=== PATIENT | male | born 1965 | race Caucasian/White ===

== ENCOUNTER 2018-06-30 13:43 | Inpatient (IN) ==
[2018-06-30] MEDS ORDERED: 0.9 % Sodium Chloride 1,000 ML IVC ONE ×2 (14:18→14:31)
[2018-06-30 15:14] LABS: Basophils # 0.1 K/mcL (0.0-0.2); Basophils % 0.4 %; Eosinophils # 0.1 K/mcL (0.0-0.6); Eosinophils % 1.1 %; Hematocrit 46.4 % (37.5-50.1); Hemoglobin 15.5 g/dL (12.9-16.9); Immature Granulocytes % 0.8 % (0-4); Lymphocytes # 1.7 K/mcL (0.6-4.6); Lymphocytes % 12.9 %; Mean Corpuscular HGB Conc 33.4 g/dL (31.6-35.5); Mean Corpuscular Hemoglobin 29.5 pg (28.0-33.3); Mean Corpuscular Volume 88.4 fL (83.0-100.0); Mean Platelet Volume 9.2 fL (9.4-12.4); Monocytes # 0.7 K/mcL (0.0-1.3); Monocytes % 5.5 %; Neutrophils # 10.5 K/mcL (1.6-8.9); Platelet Count 261 K/mcL (140-400); Red Blood Count 5.25 M/mcL (4.19-5.50); Red Cell Distribution Width 14.1 % (11.5-14.5); Segmented Neutrophils % 79.3 %
[2018-06-30 15:16] LABS: Prothrombin Time 11.4 Seconds (9.4-12.1)
[2018-06-30 15:38] LABS: Alanine Aminotransferase 282 Units/L (7-52); Albumin 3.7 g/dL (3.5-5.7); Albumin/Globulin Ratio 1.4 (1.1-2.2); Alkaline Phosphatase 74 Units/L (34-104); Aspartate Amino Transferase 754 Units/L (13-39); BUN/Creatinine Ratio 24 (6-26); Bilirubin,Direct 0.1 mg/dL (0.0-0.2); Bilirubin,Indirect 0.2 mg/dL (0.0-1.2); Bilirubin,Total 0.3 mg/dL (0.3-1.0); Blood Urea Nitrogen 12 mg/dL (6-20); Calcium 8.7 mg/dL (8.6-10.3); Carbon Dioxide 24 mEq/L (23-29); Chloride 105 mEq/L (98-107); Creatine Kinase > 20000 Units/L (30-223); Globulin 2.6 g/dL (2.4-3.5); Glucose 95 mg/dL (70-105); Osmolality,Calculated 284 (280-300); Potassium 4.3 mEq/L (3.5-5.1); Sodium 137 mEq/L (136-145); Total Protein 6.3 g/dL (6.4-8.9); eGFR For Non-African Americans > 60 (> 60)
[2018-06-30 15:51] LABS: Bilirubin,Urine Negative (Negative); Blood,Urine Large (Negative); Clarity,Urine Clear (Clear); Glucose,Urine (UA) Normal (Normal); Ketones,Urine Negative (Negative); Leukocyte Esterase,Urine Negative (Negative); Nitrite,Urine Negative (Negative); PH,Urine 7.5 pH Units (5.0-8.0); Protein,Urine 100 mg/dL (Neg-Trace); Specific Gravity,Urine 1.007 (1.010-1.025); Urobilinogen,Urine Normal (Normal)
[2018-06-30 15:53] LABS: Bacteria,Urine None Seen per hpf (None-Few); Hyaline Casts,Urine None Seen per lpf (None-Few); RBC,Urine 0-3 per hpf (0-3); Squamous Epithelial Cell,Urine Few per lpf (None-Few); WBC,Urine 0-3 per hpf (0-3)
[2018-06-30 15:56] LABS: Color,Urine Pink (Yellow)
--- NOTE | 2018-06-30 15:56 | Emergency Department Note ---
Disposition Clinical Impression: Hepatitis Rhabdomyolysis Qualifiers: Rhabdomyolysis type: non-traumatic Qualified Code(s): M62.82 - Rhabdomyolysis Disposition: Admitted As Inpatient Condition: Good Referrals: NONE,PCP [Primary Care Provider] - Forms: ED Satisfaction Letter, Work/School Release General Adult HPI - General Chief complaint: ED General Medical Stated complaint: Generalized Time Seen by Provider: 06/30/18 13:59 Source: patient, EMS Limitations: no limitations Nursing Notes Reviewed: Yes Vital Signs Reviewed: Yes - History of Present Illness HPI Narrative: Patient with a history of long-term alcohol use as well as untreated hypertension with previous history of rhabdo and kidney failure presenting to the hospital for concerns for kidney failure. Patient states for the past 2 days he has had significant muscular pains including the calves upper extremities and lower back. Patient states that he has not been doing anything significantly strain full. He did recently inherit his parents house and has been doing a lot of work around the house. He has not been staying as hydrated as he should. He states over the last day he has been drinking significant amounts of water "as much as I can stomach" to try to help. This has not significantly relieved his symptoms so he presented to the emergency department. Patient has pain to the back as well as the upper thighs and lower counts. Patient does have associated weakness to the lower legs. Patient does have a history of previous [place]. Patient will receive ABIs to further evaluate for blood flow to the lower extremities. Patient will undergo further evaluation for possible rhabdo. 2 L normal saline have been started after initial evaluation. Pain Scale: 0 - Related Data Allergies Allergy/AdvReac Type Severity Reaction Status Date / Time No Known Allergies Allergy Verified 06/30/18 15:07 All systems ED: reviewed and negative except as stated. Review of Systems: As Per HPI Constitutional: Reports: weakness (Generalized). Denies: fever, chills Cardiovascular: Denies: chest pain Respiratory: Denies: cough, dyspnea Gastrointestinal: Reports: nausea. Denies: abdominal pain, vomiting Genitourinary: Reports: frequency Musculoskeletal: Reports: back pain Integumentary: Denies: rash Neurological: Reports: weakness (generalized). Denies: headache Endocrine: Reports: fatigue Past Medical History - Past Medical History Medical history: Reports: hypertension, myocardial infarction, renal disease Psychiatric history: Reports: no psych history - Social History Smoking Status: Current every day smoker Alcohol use: Reports: occasionally Drug use: Reports: none Physical Exam General: Well appearing, nontoxic, no acute distress Head: Normocephalic Atraumatic Eyes: PERRL, EOMI ENT: Airway patent, no stridor Neck: supple, no meningismus Chest: Lungs clear to auscultation bilateral Cardiac: Regular rate and rhythm, no murmurs, rubs or gallops Abdomen: soft, nontender, nondistended; no guarding, rebound, or tenderness to percussion Musculoskeletal: Calves symmetric, tenderness to bilateral calves worse on the left Skin: No rash, normal skin tone. Neuro: Alert and Oriented to person, place, and time; cranial nerves II through XII are intact. Patient has decreased strength to the bilateral thighs. Patient has decreased ability to dorsiflex the left foot. DP pulse +2 bilaterally. - General Limitations: no limitations General appearance: alert, in no apparent distress Course - Reevaluation(s) Reevaluation #1: Patient with elevated hepatic enzymes. AST 2 ALT are consistent with significant drinking history and possible alcoholic hepatitis. The patient adamantly denies any previous history of IV drug use. Hepatitis panel as well as acetaminophen and GGT will be added to complete the hepatitis workup. Patient does not have any significant right upper quadrant abdominal pain. Patient does have mild discomfort with significant deep palpation. Lam sign is negative. Patient has elevated CK greater than 20,000. Patient is been drinking significant amounts of fluid home and has pink-colored urine. Patient is likely been treating himself prior to arrival as he has normal kidney fun ction. Patient will continue to have 200 mL per hour which is twice maintenance fluids in addition to 2 L normal saline bolus. Patient continuing to make good urine. Patient does not want any pain medication at this time. - Consultations Consultation #1: Discussed with hospitalist. Patient accepted for admission. Vital Signs Temperature 97.0 F L 06/30/18 13:47 Pulse Rate 100 06/30/18 13:47 Respiratory Rate 18 06/30/18 13:47 Blood Pressure 147/103 06/30/18 13:47 O2 Sat by Pulse Oximetry 100 06/30/18 13:47 Temperature 97.0 F L 06/30/18 13:47 Pulse Rate 90 06/30/18 15:41 Respiratory Rate 16 06/30/18 15:41 Blood Pressure 173/106 06/30/18 15:41 O2 Sat by Pulse Oximetry 66 06/30/18 15:41 Oxygen Delivery Oxygen Delivery Room Air Medical Decision Making - Medical Records Medical records reviewed: Yes I reviewed the patient's medical records. - Lab Data Lab results reviewed: Yes I reviewed the patient's lab results. Result diagrams: 06/30/18 14:48 06/30/18 14:48 Lab Results 06/30/18 06/30/18 06/30/18 Range/Units 14:48 14:48 14:48 WBC 13.2 H (4.3-11.1) K/mcL RBC 5.25 (4.19-5.50) M/mcL Hgb 15.5 (12.9-16.9) g/dL Hct 46.4 (37.5-50.1) % MCV 88.4 (83.0-100.0) fL MCH 29.5 (28.0-33.3) pg MCHC 33.4 (31.6-35.5) g/dL RDW 14.1 (11.5-14.5) % Plt Count 261 (140-400) K/mcL MPV 9.2 L (9.4-12.4) fL Immature Gran % 0.8 (0-4) % Seg Neutrophils % 79.3 % Lymphocytes % 12.9 % Monocytes % 5.5 % Eosinophils % 1.1 % Basophils % 0.4 % Neutrophils # 10.5 H (1.6-8.9) K/mcL Lymphocytes # 1.7 (0.6-4.6) K/mcL Monocytes # 0.7 (0.0-1.3) K/mcL Eosinophils # 0.1 (0.0-0.6) K/mcL Basophils # 0.1 (0.0-0.2) K/mcL PT 11.4 (9.4-12.1) Seconds INR 1.0 Sodium 137 (136-145) mEq/L Potassium 4.3 (3.5-5.1) mEq/L Chloride 105 (98-107) mEq/L Carbon Dioxide 24 (23-29) mEq/L BUN 12 (6-20) mg/dL Creatinine 0.50 L (0.70-1.30) mg/dL Est GFR ( Amer) > 60 (> 60) Est GFR (Non-Af Amer) > 60 (> 60) BUN/Creatinine Ratio 24 (6-26) Glucose 95 (70-105) mg/dL Calculated Osmolality 284 (280-300) Lactic Acid (0.5-2.2) mmol/L Calcium 8.7 (8.6-10.3) mg/dL Total Bilirubin 0.3 (0.3-1.0) mg/dL Direct Bilirubin 0.1 (0.0-0.2) mg/dL Indirect Bilirubin 0.2 (0.0-1.2) mg/dL AST 754 H (13-39) Units/L ALT 282 H (7-52) Units/L Alkaline Phosphatase 74 (34-104) Units/L Creatine Kinase > 76220 H (30-223) Units/L Serum Total Protein 6.3 L (6.4-8.9) g/dL Albumin 3.7 (3.5-5.7) g/dL Globulin 2.6 (2.4-3.5) g/dL Albumin/Globulin Ratio 1.4 (1.1-2.2) Urine Color (Yellow) Urine Clarity (Clear) Urine pH (5.0-8.0) pH Units Ur Specific [place] (1.010-1.025) Urine Protein (Neg-Trace) mg/dL Urine Glucose (UA) (Normal) mg/dL Urine Ketones (Negative) mg/dL Urine Blood (Negative) Urine Nitrite (Negative) Urine Bilirubin (Negative) Urine Urobilinogen (Normal) mg/dL Ur Leukocyte Esterase (Negative) Urine Microscopic RBC (0-3) per hpf Urine Microscopic WBC (0-3) per hpf Ur Squamous Epith Cells (None-Few) per lpf Urine Bacteria (None-Few) per hpf Hyaline Casts (None-Few) per lpf Ur Culture Indicated? (NO) 06/30/18 06/30/18 Range/Units 14:48 15:37 WBC (4.3-11.1) K/mcL RBC (4.19-5.50) M/mcL Hgb (12.9-16.9) g/dL Hct (37.5-50.1) % MCV (83.0-100.0) fL MCH (28.0-33.3) pg MCHC (31.6-35.5) g/dL RDW (11.5-14.5) % Plt Count (140-400) K/mcL MPV (9.4-12.4) fL Immature Gran % (0-4) % Seg Neutrophils % % Lymphocytes % % Monocytes % % Eosinophils % % Basophils % % Neutrophils # (1.6-8.9) K/mcL Lymphocytes # (0.6-4.6) K/mcL Monocytes # (0.0-1.3) K/mcL Eosinophils # (0.0-0.6) K/mcL Basophils # (0.0-0.2) K/mcL PT (9.4-12.1) Seconds INR Sodium (136-145) mEq/L Potassium (3.5-5.1) mEq/L Chloride (98-107) mEq/L Carbon Dioxide (23-29) mEq/L BUN (6-20) mg/dL Creatinine (0.70-1.30) mg/dL Est GFR ( Amer) (> 60) Est GFR (Non-Af Amer) (> 60) BUN/Creatinine Ratio (6-26) Glucose (70-105) mg/dL Calculated Osmolality (280-300) Lactic Acid 3.2 H (0.5-2.2) mmol/L Calcium (8.6-10.3) mg/dL Total Bilirubin (0.3-1.0) mg/dL Direct Bilirubin (0.0-0.2) mg/dL Indirect Bilirubin (0.0-1.2) mg/dL AST (13-39) Units/L ALT (7-52) Units/L Alkaline Phosphatase (34-104) Units/L Creatine Kinase (30-223) Units/L Serum Total Protein (6.4-8.9) g/dL Albumin (3.5-5.7) g/dL Globulin (2.4-3.5) g/dL Albumin/Globulin Ratio (1.1-2.2) Urine Color [place] (Yellow) Urine Clarity Clear (Clear) Urine pH 7.5 (5.0-8.0) pH Units Ur Specific [place] 1.007 L (1.010-1.025) Urine Protein 100 H (Neg-Trace) mg/dL Urine Glucose (UA) Normal (Normal) mg/dL Urine Ketones Negative (Negative) mg/dL Urine Blood Large H (Negative) Urine Nitrite Negative (Negative) Urine Bilirubin Negative (Negative) Urine Urobilinogen Normal (Normal) mg/dL Ur Leukocyte Esterase Negative (Negative) Urine Microscopic RBC 0-3 (0-3) per hpf Urine Microscopic WBC 0-3 (0-3) per hpf Ur Squamous Epith Cells Few (None-Few) per lpf Urine Bacteria None Seen (None-Few) per hpf Hyaline Casts None Seen (None-Few) per lpf Ur Culture Indicated? NO (NO) - Radiology Data Radiology results reviewed: Yes I reviewed the patient's radiology results.
--- NOTE | 2018-06-30 16:09 | Internal Med History&Physical ---
<Kendall Woodall S - Last Filed: 06/30/18 17:12> Date of Encounter: 06/30/18 Time of Encounter: 16:28 Internal Medicine - H&P: HPI Chief complaint: rhabdo Admitted From: Home Plans for Post Hospital Care: Home History of present illness: Mr. Fabian is a 52 year old male with PMH of untreated HTN, alcoholism and hx of rhabdomyolysis requiring HD x 3 sessions. He states that he has had rhabdomyolysis in the past and required HD due to kidney failure from it. He states that on he began noticing his urine turning red and that he had horrible muscle cramps. He states that over the last few days the cramps subsided and that his urine got less red but that he has been drinking " a lot of fluids to self treat" his rhabdo since he "knew" that he had it. He states that he hasn't done anything particularly straining, like running long distances or biking long distances. He also states that he hasn't had any recent falls or been sedentary for a long period of time. He has been having increasing amounts of house work since inheriting his parent's home. In the ER he was found to have a CK of >20,000 with a creatinine of 0.5. He was given a bolus of fluids and was continued on IV normal saline. He had elevated AST/ALT as well, likely alchohol induced as the AST higher than ALT with some mild RUQ tenderness to palpation. He was also found to have cold LE and YOAV have been ordered. Patient to be admitted to the hospitalist service for further evaluation and treatment. Past Med Surg Social Fam HX - Past Medical History Medical history: hypertension, myocardial infarction, renal disease Psychiatric history: no psych history - Social History Smoking Status: Current every day smoker Alcohol use: occasionally Drug use: none - Family History Mother History Unknown: Yes Father History Unknown: Yes Internal Medicine - H&P: Meds No Known Home Drugs 06/30/18 [History] Allergy/AdvReac Type Severity Reaction Status Date / Time Penicillins Allergy See Verified 06/30/18 18:12 Comments All Systems PM: A 10-system review of systems was performed and is negative for pertinent findings except as documented above in the HPI. - Constitutional Constitutional: lethargy, weakness, no fever(s), no falls - EENT Eyes: no blurry vision Ears: no tinnitus - Cardiovascular Cardiovascular ROS IM: no chest pain, no dyspnea, no dyspnea on exertion, no palpitations - Respiratory Respiratory: no cough, no dyspnea on exertion - Gastrointestinal Gastrointestinal: abdominal pain, nausea, no vomiting - Genitourinary Genitourinary ROS male: hematuria, no difficulty urinating, no dysuria - Musculoskeletal Musculoskeletal ROS IM: no numbness, no stiffness, no tingling - Integumentary Integumentary IM: no unusual bruising, no jaundice - Neurological Neurological ROS: no confusion - Psychiatric Psychiatric: no confusion - Endocrine Endocrine IM: fatigue - Hematologic/Lymphatic Hematologic/Lymphatic: easy bruising, no easy bleeding - Constitutional Vitals: Temp Pulse Resp BP Pulse Ox 97.0 F L 90 16 173/106 66 06/30/18 13:47 06/30/18 15:41 06/30/18 15:41 06/30/18 15:41 06/30/18 15:41 Exam: General - NAD, AOx3, pleasant, discheveled man HEENT - NCAT, MMM, sclera anicteric Cardio - tacycardia, s1s2, cta, no murmur Lungs - CTAB with mild expiratory wheeze Abd - TTP in RUQ without rebound or guarding, no peritoneal signs Extremities - moves all extremities equally and without difficulty LE/feet cool to the touch Neuro - no FND, sensation intact, CN2-12 grossly intact Psych - normal affect, normal mood Skin - warm, dry, intact Internal Med - H&P Results - Labs CBC & Chem 7: 06/30/18 14:48 06/30/18 14:48 Labs: Short CBC 06/30/18 Range/Units 14:48 WBC 13.2 H (4.3-11.1) K/mcL Hgb 15.5 (12.9-16.9) g/dL Hct 46.4 (37.5-50.1) % Plt Count 261 (140-400) K/mcL Neutrophils # 10.5 H (1.6-8.9) K/mcL BMP 06/30/18 14:48 Sodium 137 Potassium 4.3 Chloride 105 Carbon Dioxide 24 BUN 12 Creatinine 0.50 L Glucose 95 Calcium 8.7 Liver Function 06/30/18 Range/Units 14:48 Total Bilirubin 0.3 (0.3-1.0) mg/dL Direct Bilirubin 0.1 (0.0-0.2) mg/dL AST 754 H (13-39) Units/L ALT 282 H (7-52) Units/L Alkaline Phosphatase 74 (34-104) Units/L Albumin 3.7 (3.5-5.7) g/dL Urine 06/30/18 Range/Units 15:37 Urine Color [place] (Yellow) Urine Clarity Clear (Clear) Urine pH 7.5 (5.0-8.0) pH Units Ur Specific [place] 1.007 L (1.010-1.025) Urine Protein 100 H (Neg-Trace) mg/dL Urine Glucose (UA) Normal (Normal) mg/dL - Assessment and Plan (1) Rhabdomyolysis Current Visit: Yes Status: Acute Assessment and plan: Pt with hx of rhabdomyolysis in the past resulting in ARF and requiring HD x 3 sessions - began having increasing red urine on with muscle cramps - pt denies strainful activities, running, long bike rides; has had increasing amount of "house work" CK >20,000 Creatinine 0.50 UA with large blood and no RBC Plan: - creatinine kinase with AM labs - continue IVF 200cc/hr NS - one time 50 mEq of bicarb with NS - UDS to r/o meth induced rhabdomyolysis - CBC/BMP with AM labs - urine myoglobin pending - TSH to r/o hypothyroid induced rhabdo - nephrology consulted, appreciate recommendations - FEN: regular diet - dispo: pt will need inpatient management at this time with IVF and monitoring of kidney fxn Qualifiers: Rhabdomyolysis type: non-traumatic Qualified Code(s): M62.82 - Rhabdomyolysis (2) Transaminitis Current Visit: Yes Status: Acute Assessment and plan: Pt with hx of severe alcoholism with mild tenderness to palpation of the abdomen AST 754, ALT 282 Plan: - GGT pending - hepatitis panel pending - abdominal ultrasound pending (3) History of alcohol abuse Current Visit: Yes Status: Acute Assessment and plan: Pt has hx of intermediate card tender alcohol abuse. Consult SW. [facility] protocol. (4) Tobacco abuse Current Visit: Yes Status: Acute Assessment and plan: Smokes 1/2 PPD. Counseled. (5) Hypertension Current Visit: Yes Status: Acute Assessment and plan: Start on norvasc daily. Pt has untreated HTN. Qualifiers: Hypertension type: essential hypertension Qualified Code(s): I10 - Esse ntial (primary) hypertension (6) DVT prophylaxis Current Visit: Yes Status: Acute Assessment and plan: sq heparin (7) Leukocytosis Current Visit: Yes Status: Acute Assessment and plan: WBC 13.2, likely secondary to stress demargination. No abx to be started at this time. Qualifiers: Leukocytosis type: unspecified Qualified Code(s): D72.829 - Elevated white blood cell count, unspecified (8) Lactic acidosis Current Visit: Yes Status: Acute Assessment and plan: Lactic acid 3.2, repeat pending. Likely increased secondary to severe dehydration and rhabdomyolysis. Continue IVF hydration. - Time Spent With Patient Total time spent is greater than 50% in coordination of care (as documented) at patient's floor/unit and/or counseling patient: 25 - 35 minutes <Tresa Aguirre - Last Filed: 06/30/18 18:17> Date of Encounter: 06/30/18 Internal Medicine - H&P: HPI History of present illness: Mr. Fabian is a 52 year old male All Systems PM: A 10-system review of systems was performed and is negative for pertinent findings except as documented above in the HPI. - Constitutional Vitals: Temp Pulse Resp BP Pulse Ox 97.0 F L 90 18 163/104 66 06/30/18 13:47 06/30/18 15:41 06/30/18 18:11 06/30/18 18:11 06/30/18 15:41 Internal Med - H&P Results - Labs CBC & Chem 7: 06/30/18 14:48 06/30/18 14:48 Labs: Short CBC 06/30/18 Range/Units 14:48 WBC 13.2 H (4.3-11.1) K/mcL Hgb 15.5 (12.9-16.9) g/dL Hct 46.4 (37.5-50.1) % Plt Count 261 (140-400) K/mcL Neutrophils # 10.5 H (1.6-8.9) K/mcL BMP 06/30/18 14:48 Sodium 137 Potassium 4.3 Chloride 105 Carbon Dioxide 24 BUN 12 Creatinine 0.50 L Glucose 95 Calcium 8.7 Liver Function 06/30/18 Range/Units 14:48 Total Bilirubin 0.3 (0.3-1.0) mg/dL Direct Bilirubin 0.1 (0.0-0.2) mg/dL GGT 11 (2-30) Units/L AST 754 H (13-39) Units/L ALT 282 H (7-52) Units/L Alkaline Phosphatase 74 (34-104) Units/L Albumin 3.7 (3.5-5.7) g/dL Urine 06/30/18 Range/Units 15:37 Urine Color [place] (Yellow) Urine Clarity Clear (Clear) Urine pH 7.5 (5.0-8.0) pH Units Ur Specific [place] 1.007 L (1.010-1.025) Urine Protein 100 H (Neg-Trace) mg/dL Urine Glucose (UA) Normal (Normal) mg/dL - Impressions ITS Impressions Chest X-Ray 06/30/18 16:41 IMPRESSION: No acute pneumonia. D/ / Itz Keen MD / Itz Keen MD Interpreting Provider: Itz Keen MD - Time Spent With Patient Total time spent is greater than 50% in coordination of care (as documented) at patient's floor/unit and/or counseling patient: - Attending Attestation I have seen and independently assessed this patient and I agree with plan per resident as above Plan Severe rhabdomyolysis. Aggressive Iv fluid hydration. Obtain urine myoglobin to assess for heme pigment induced acute kidey injury. CPK > 20,000 and will add bicarb to IV fluids. Repeat BMP to assess for electrolyte abnormalities such as hyperkalemia which will need to be aggressively corrected. Renal consult and recs appreciated. Obtain TSH Transaminitis with alcohol abuse. CIWA protocol. IV fluid hydration
[2018-06-30] MEDS ORDERED: Naloxone 0.4 MG/ML INJ IVP PRN (16:26)
[2018-06-30 16:30] LABS: Acetaminophen < 10 mcg/mL (10-20); Gamma Glutamyl Transpeptidase 11 Units/L (2-30)
[2018-06-30] MEDS ORDERED: *HR* LORazepam 2 MG/ML VIAL IVP PRN ×3 (16:31)
[2018-06-30] MEDS ORDERED: amLODIPine 5 MG TABLET PO SCH (16:45)
[2018-06-30] MEDS ORDERED: Sodium Bicarbonate 50 MEQ/50 ML VIAL IVP ONE ×2 (17:05→18:09)
[2018-06-30 17:27] LABS: Hepatitis B Surface Antigen Nonreactive (Nonreactive)
[2018-06-30] MEDS ORDERED: *HR* OxyCODONE Immed Rel 5 MG TABLET PO STA (17:48)
[2018-06-30 17:56] LABS: Hepatitis B Core IgM Nonreactive (Nonreactive)
[2018-06-30 17:57] LABS: Hepatitis C Virus Antibody Nonreactive (Nonreactive)
[2018-06-30 17:58] LABS: Hepatitis A Antibody IgM Nonreactive (Nonreactive)
[2018-06-30] MEDS: 0.9 % Sodium Chloride 1,000 ML IVC SCH (19:38)
[2018-06-30 19:51] LABS: Ethanol < 10 mg/dL (Less than 10)
[2018-06-30] MEDS: *HR* Heparin 5,000 UNIT/ML VIAL SQ SCH (22:12)
[2018-06-30] MEDS ORDERED: Acetaminophen 325 MG TABLET PO ONE (23:37)
[2018-07-01] MEDS: 0.9 % Sodium Chloride 1,000 ML IVC SCH ×6 (00:32→23:36)
[2018-07-01 00:59] LABS: Hematocrit 41.5 % (37.5-50.1); Mean Corpuscular HGB Conc 33.5 g/dL (31.6-35.5); Mean Corpuscular Hemoglobin 29.5 pg (28.0-33.3); Mean Corpuscular Volume 88.1 fL (83.0-100.0); Mean Platelet Volume 9.3 fL (9.4-12.4); Platelet Count 253 K/mcL (140-400); Red Blood Count 4.71 M/mcL (4.19-5.50)
[2018-07-01 01:00] LABS: Hemoglobin 13.9 g/dL (12.9-16.9)
[2018-07-01 01:19] LABS: Albumin 3.3 g/dL (3.5-5.7); Albumin/Globulin Ratio 1.4 (1.1-2.2); Bilirubin,Direct 0.1 mg/dL (0.0-0.2); Bilirubin,Indirect 0.3 mg/dL (0.0-1.2); Bilirubin,Total 0.4 mg/dL (0.3-1.0); Globulin 2.3 g/dL (2.4-3.5); Total Protein 5.6 g/dL (6.4-8.9)
[2018-07-01 01:40] LABS: BUN/Creatinine Ratio 19 (6-26); Blood Urea Nitrogen 10 mg/dL (6-20); Calcium 8.1 mg/dL (8.6-10.3); Carbon Dioxide 27 mEq/L (23-29); Chloride 106 mEq/L (98-107); Glucose 112 mg/dL (70-105); Osmolality,Calculated 282 (280-300); Potassium 3.7 mEq/L (3.5-5.1); Sodium 136 mEq/L (136-145); eGFR For Non-African Americans > 60 (> 60)
[2018-07-01 01:41] LABS: Creatine Kinase > 20000 Units/L (30-223)
[2018-07-01] MEDS ORDERED: diazePAM 10 MG/2 ML SYRINGE IVP ONE (02:13)
[2018-07-01] MEDS: *HR* Heparin 5,000 UNIT/ML VIAL SQ SCH ×2 (05:51→17:34)
[2018-07-01 06:32] LABS: Amphetamine Screen,Urine Negative ng/mL (Cutoff=1000); Barbiturate Screen,Urine Negative ng/mL (Cutoff=200)
[2018-07-01 06:33] LABS: Benzodiazepines Screen,Urine Negative ng/mL (Cutoff=300); Cannabinoid Screen,Urine Positive ng/mL (Cutoff = 50); Cocaine Screen,Urine Negative ng/mL (Cutoff= 300); Opiate Screen,Urine Negative ng/mL (Cutoff=300); Phencyclidine Screen,Urine Negative ng/mL (Cutoff=25)
--- NOTE | 2018-07-01 07:10 | Internal Med Progress Note ---
<Jose CKendall S - Last Filed: 07/01/18 10:43> Hospitalist Progress Note - Encounter Date of Encounter: 07/01/18 Time of Encounter: 09:12 - Subjective Interval History: Pt seen at bedside. He c/o 10/10 pain all over his body. He really wishes to have breakfast and some pain medication. - Exam Vitals: Temp Pulse Resp BP Pulse Ox 98.3 F 82 17 165/93 98 07/01/18 03:30 07/01/18 03:30 07/01/18 03:30 07/01/18 03:30 07/01/18 03:30 Exam: General - NAD, AOx3, pleasant, discheveled man HEENT - NCAT, MMM, sclera anicteric Cardio - tacycardia, s1s2, cta, no murmur Lungs - CTAB with mild expiratory wheeze Abd - TTP in RUQ without rebound or guarding, no peritoneal signs Extremities - moves all extremities equally and without difficulty LE/feet cool to the touch Neuro - no FND, sensation intact, CN2-12 grossly intact Psych - normal affect, normal mood Skin - warm, dry, intact - Assessment and Plan (1) Rhabdomyolysis Current Visit: Yes Status: Acute Assessment and Plan: t with hx of rhabdomyolysis in the past resulting in ARF and requiring HD x 3 sessions - began having increasing red urine on with muscle cramps - pt denies strainful activities, running, long bike rides; has had increasing amount of "house work" CK >20,000 x 2 days Creatinine 0.50 on admission UA with large blood and no RBC TSH WNL UDS negative (other than THC) Kidney fxn still intact, no acute electrolyte abnormalities at this time Plan: - repeat creatinine kinase with AM labs - continue IVF 200cc/hr NS - CBC/BMP with AM labs - urine myoglobin pending - nephrology consulted, appreciate recommendations - FEN: regular diet - dispo: pt will need inpatient management at this time with IVF and monitoring of kidney fxn (2) Transaminitis Current Visit: Yes Status: Acute Assessment and Plan: Pt with hx of severe alcoholism with mild tenderness to palpation of the abdomen AST 754, ALT 282 GGT 11 Hepatitis panel negative Abdominal US negative for acute abnormality Plan: - GI consult (3) History of alcohol abuse Current Visit: Yes Status: Acute Assessment and Plan: Pt 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 Consult SW. [facility] protocol. (4) Tobacco abuse Current Visit: Yes Status: Acute Assessment and Plan: Smokes 1/2 PPD. Counseled. (5) Hypertension Current Visit: Yes Status: Acute Assessment and Plan: Start on norvasc daily. Pt has untreated HTN. IVP lopressor q6hr if SBP>160 (6) DVT prophylaxis Current Visit: Yes Status: Acute Assessment and Plan: sq heparin (7) Leukocytosis Current Visit: Yes Status: Acute Assessment and Plan: WBC 13.2 decreased to 12.2, likely secondary to stress demargination. XR chest negative. No abx to be started at this time. (8) Lactic acidosis Current Visit: Yes Status: Resolved Assessment and Plan: Lactic acid 3.2, repeat 1.7. Likely increased secondary to severe dehydration and rhabdomyolysis. Continue IVF hydration. Resolved. DVT Prophylaxis: sq heparin - Time Spent with Patient Total time spent is greater than 50% in coordination of care (as documented) at patient's floor/unit and/or counseling patient: less than 15 minutes Plan of Care Discussed with: nurse Internal Medicine: Result - Labs CBC & Chem 7: 07/01/18 00:31 07/01/18 00:31 Labs: Short CBC 06/30/18 07/01/18 Range/Units 14:48 00:31 WBC 13.2 H 12.2 H (4.3-11.1) K/mcL Hgb 15.5 13.9 D (12.9-16.9) g/dL Hct 46.4 41.5 (37.5-50.1) % Plt Count 261 253 (140-400) K/mcL Neutrophils # 10.5 H (1.6-8.9) K/mcL BMP 06/30/18 07/01/18 14:48 00:31 Sodium 137 136 Potassium 4.3 3.7 Chloride 105 106 Carbon Dioxide 24 27 BUN 12 10 Creatinine 0.50 L 0.52 L Glucose 95 112 H Calcium 8.7 8.1 L Liver Function 06/30/18 07/01/18 Range/Units 14:48 00:31 Total Bilirubin 0.3 0.4 (0.3-1.0) mg/dL Direct Bilirubin 0.1 0.1 (0.0-0.2) mg/dL GGT 11 (2-30) Units/L AST 754 H 707 H (13-39) Units/L ALT 282 H 282 H (7-52) Units/L Alkaline Phosphatase 74 68 (34-104) Units/L Albumin 3.7 3.3 L (3.5-5.7) g/dL Urine 06/30/18 Range/Units 15:37 Urine Color [place] (Yellow) Urine Clarity Clear (Clear) Urine pH 7.5 (5.0-8.0) pH Units Ur Specific [place] 1.007 L (1.010-1.025) Urine Protein 100 H (Neg-Trace) mg/dL Urine Glucose (UA) Normal (Normal) mg/dL - ABG Interpretation ABG results: PT/INR, D-dimer PT 11.4 Seconds (9.4-12.1) 06/30/18 14:48 - Impressions Impressions Chest X-Ray 06/30/18 16:41 IMPRESSION: No acute pneumonia. D/ / Itz Keen MD / Itz Keen MD Interpreting Provider: Itz Keen MD Consult Discharge Plan - Plan Referrals: NONE,PCP [Primary Care Provider] - <Jossie Guzman - Last Filed: 07/01/18 12:31> Hospitalist Progress Note - Encounter Date of Encounter: 07/01/18 - Exam Vitals: Temp Pulse Resp BP Pulse Ox 98.3 F 104 18 156/89 97 07/01/18 11:02 07/01/18 11:02 07/01/18 11:02 07/01/18 11:02 07/01/18 11:02 - Time Spent with Patient Total time spent is greater than 50% in coordination of care (as documented) at patient's floor/unit and/or counseling patient: Internal Medicine: Result - Labs CBC & Chem 7: 07/01/18 00:31 07/01/18 00:31 Labs: Short CBC 06/30/18 07/01/18 Range/Units 14:48 00:31 WBC 13.2 H 12.2 H (4.3-11.1) K/mcL Hgb 15.5 13.9 D (12.9-16.9) g/dL Hct 46.4 41.5 (37.5-50.1) % Plt Count 261 253 (140-400) K/mcL Neutrophils # 10.5 H (1.6-8.9) K/mcL BMP 06/30/18 07/01/18 14:48 00:31 Sodium 137 136 Potassium 4.3 3.7 Chloride 105 106 Carbon Dioxide 24 27 BUN 12 10 Creatinine 0.50 L 0.52 L Glucose 95 112 H Calcium 8.7 8.1 L Liver Function 06/30/18 07/01/18 Range/Units 14:48 00:31 Total Bilirubin 0.3 0.4 (0.3-1.0) mg/dL Direct Bilirubin 0.1 0.1 (0.0-0.2) mg/dL GGT 11 (2-30) Units/L AST 754 H 707 H (13-39) Units/L ALT 282 H 282 H (7-52) Units/L Alkaline Phosphatase 74 68 (34-104) Units/L Albumin 3.7 3.3 L (3.5-5.7) g/dL Urine 06/30/18 Range/Units 15:37 Urine Color [place] (Yellow) Urine Clarity Clear (Clear) Urine pH 7.5 (5.0-8.0) pH Units Ur Specific [place] 1.007 L (1.010-1.025) Urine Protein 100 H (Neg-Trace) mg/dL Urine Glucose (UA) Normal (Normal) mg/dL - ABG Interpretation ABG results: PT/INR, D-dimer PT 11.4 Seconds (9.4-12.1) 06/30/18 14:48 - Impressions Impressions Chest X-Ray 06/30/18 16:41 IMPRESSION: No acute pneumonia. D/ / Itz Keen MD / Itz Keen MD Interpreting Provider: Itz Keen MD Abdomen Ultrasound 07/01/18 08:00 IMPRESSION: Negative abdominal ultrasound. D/ / Miguelito Gomez MD / Miguelito Gomez MD Interpreting Provider: Miguelito Gomez MD - Attending Attestation I examined this patient and my medical decision-making was reviewed with the Resident Physician. I agree with the documented findings, disposition and treatment plan as described except to the extent set forth below. <Kendall Woodall S - Last Filed: 07/01/18 10:43> (1) Rhabdomyolysis Qualifiers: Rhabdomyolysis type: non-traumatic Qualified Code(s): M62.82 - Rhabdomyolysis (5) Hypertension Qualifiers: Hypertension type: essential hypertension Qualified Code(s): I10 - Essential (primary) hypertension (7) Leukocytosis Qualifiers: Leukocytosis type: unspecified Qualified Code(s): D72.829 - Elevated white blood cell count, unspecified
[2018-07-01] MEDS: amLODIPine 5 MG TABLET PO SCH (07:33)
[2018-07-01] MEDS: *HR* OxyCODONE Oral Soln 5 MG/5 ML UD.LIQ PO PRN ×3 (09:47→23:35)
[2018-07-01] MEDS: *HR* Metoprolol 5 MG/5 ML VIAL IVP SCH ×3 (11:10→23:35)
[2018-07-01] MEDS ORDERED: 0.9 % Sodium Chloride 1,000 ML IVC ONE (12:31)
--- NOTE | 2018-07-01 14:45 | Nephrology Consult Note ---
Date of Encounter: 07/01/18 Time of Encounter: 09:05 Assessment and Plan (1) Rhabdomyolysis Current Visit: Yes Status: Acute CK= > 20,000. Patient's UA shows blood but 0-3 RBCs therefore urine myoglobin is pending. Based off of history and labs, most likely etiology of rhabdomyolysis is non-traumatic exertion from too much exercise by working on his house with concurrent dehydration. Patient states that there was no trauma to cause and he does not have any evidence of trauma on PE. UDS did not show heroine, cocaine, or methamphetamines and patient has not been taking any medications therefore less likely a drug induced rhabdomyolysis. His temperature upon arrival did not suggest hyperthermia. He does not have symptoms of an upper resp infection and denies risk factors for HIV therefore less likely from infection. TSH also within normal limits. Other causes that have not been ruled out include a metabolic myopathy and could consider work up for aldolase deficiency or hemochromatosis. With a hx of HTN and MD, would recommend not placing patient on Simvastatin and amlodpine as the combination increases risk of rhabdomyolysis. Patient's creatinine function is within normal limits despite extremely elevated CK. No indication for dialysis at this time. Therefore will continue aggressive rehydration. Patient has good urinary output and no edema on physical exam. Electrolytes with normal limits at this time, will continue to monitor. Plan: -continue aggressive hydration with NS at @ 200ml/hr - will check Phos tomorrow - s/p sodium bicarb 50meq - urine myoglobin pending - UDS positive for marajuana - avoid nephrotoxins - continue strict I&Os - diet: regular diet Qualifiers: Rhabdomyolysis type: non-traumatic Qualified Code(s): M62.82 - Rhabdomyolysis (2) Hypertension Current Visit: Yes Status: Acute Patient does not take any medications at home for his BP. Elevated without symptoms. Will begin amlodipine 5mg daily. Metoprolol 5mg IV Q6H prn. Qualifiers: Hypertension type: essential hypertension Qualified Code(s): I10 - Essential (primary) hypertension (3) Transaminitis Current Visit: Yes Status: Acute (4) Lactic acidosis Current Visit: Yes Status: Resolved resolved. History of Present Illness - Reason for Consult Consult date: 07/01/18 Requesting physician: Kendall Woodall - Chief Complaint rhabdomyolysis - History of Present Illness Mr. Fabian is a 52 year old male with PMH of untreated HTN, alcoholism and hx of rhabdomyolysis requiring HD x 3 sessions (July 2016) who presented to the ED with reddish, brown urine and was found to have rhabdomyolysis. Nephrology was consulted for rhabdomyolysis. Patient states that on Saturday or , he began noticing changes in urine color. He states that he has been working on repairing a deck, the garage, and working in the garden. He believes he may have over exerted himself which caused this. For a couple of days he has been hydrating but due to the continuation and worsening myalgia patient came to the ED. He denies drinking isopropyl alcohol or moonshine, trauma. He states that he does drink everyday but has not recently drank enough to cause him to pass out. He does not believe that he has risk factors for HIV. His last episode of rhabdo he believes also to be de to exertion as he was working out a lot. Denies dysuria, abdominal pain, chest pain, sob, fevers. Past Med Surg Social Fam HX - Past Medical History Medical history: hypertension, myocardial infarction, renal disease Psychiatric history: no psych history - Social History Smoking Status: Current every day smoker Alcohol use: occasionally Drug use: none - Family History Mother History Unknown: Yes Father History Unknown: Yes Medications and Allergies No Known Home Drugs 06/30/18 [History] Allergy/AdvReac Type Severity Reaction Status Date / Time Penicillins Allergy Anaphylaxis Verified 06/30/18 22:16 Review of Systems Constitutional: as per HPI Exam - Vital Signs Vital signs: Initial Vital Signs Temp Pulse Resp BP Pulse Ox 97.0 F L 100 18 147/103 100 06/30/18 13:47 06/30/18 13:47 06/30/18 13:47 06/30/18 13:47 06/30/18 13:47 Vital Signs - Last 8 Hours Temp Pulse Resp BP Pulse Ox 07/01/18 11:02 98.3 F 104 18 156/89 97 07/01/18 07:20 97.7 F 96 18 181/105 98 Intake and Output 06/30/18 07/01/18 07/01/18 23:59 07:59 15:59 Intake Total 2000 / 3360 1360 / 3360 Output Total 450 / 450 600 / 1900 1300 / 1900 Balance -450 / -450 1400 / 1460 60 / 1460 Intake: IV Fluids 2000 / 3000 1000 / 3000 0.9 % Sodium Chloride 1,000 ML 2000 / 3000 1000 / 3000 @ 200 mls/hr IVC .Q5H [facility] Rx#: [id number] Oral 360 / 360 Output: Urine 450 / 450 600 / 600 Catheter 1300 / 1300 Other: Meal Breakfast Percent of Meal Consumed 100% Weight 59 kg - General Appearance Exam: Constitutional: Alert, in no acute distress Head: Normocephalic, atraumatic Heart: Normal, regular rate and rhythm, no murmurs Lungs: Clear to auscultation, no wheezes, rales, or rhonchi Abdomen: Soft, nondistended, nontender, bowel sounds present and normal, no guarding or rigidity. Extremities: tenderness along both upper and lower extremities, No edema, No clubbing, radial pulse +2/4, capillary refill <2sec. : manriquez draining pink-red urine Skin: Skin warm and dry, no lesions, no rashes, no jaundice Neurologic: Cranial nerves II through XII grossly intact, strength 4/5 in all extremities Psych: Cooperative with exam, good eye contact, cognitive function intact, speech clear, thought process logical, and goal directed Results - Lab Results 07/01/18 00:31 07/01/18 00:31 Most recent lab results 07/01/18 00:31 Calcium 8.1 L Consult Discharge Plan - Plan Referrals: NONE,PCP [Primary Care Provider] -
[2018-07-01 17:33] LABS: Phosphorous 3.3 mg/dL (2.7-4.5)
[2018-07-02 04:01] LABS: % Iron Saturation 15 % (20-55); Albumin 3.4 g/dL (3.5-5.7); BUN/Creatinine Ratio 25 (6-26); Blood Urea Nitrogen 15 mg/dL (6-20); Carbon Dioxide 26 mEq/L (23-29); Chloride 106 mEq/L (98-107); Glucose 154 mg/dL (70-105); Iron 44 mcg/dL (65-175); Osmolality,Calculated 288 (280-300); Phosphorous 3.6 mg/dL (2.7-4.5); Potassium 4.4 mEq/L (3.5-5.1); Sodium 137 mEq/L (136-145); Transferrin 212 mg/dL (203-362); eGFR For Non-African Americans > 60 (> 60)
[2018-07-02] MEDS: *HR* Metoprolol 5 MG/5 ML VIAL IVP SCH (05:33)
[2018-07-02] MEDS: *HR* OxyCODONE Oral Soln 5 MG/5 ML UD.LIQ PO PRN ×2 (05:33→21:16)
[2018-07-02] MEDS: 0.9 % Sodium Chloride 1,000 ML IVC SCH ×5 (05:33→21:16)
[2018-07-02] MEDS: *HR* Heparin 5,000 UNIT/ML VIAL SQ SCH ×2 (05:37→16:37)
--- NOTE | 2018-07-02 07:18 | Event Note ---
Date of Encounter: 07/02/18 Time of Encounter: 07:17 - Nephrology Event Note Nephrology chart update The patient's renal function has not been an issue and remains normal. So I will sign off at this point. Please feel free to call or page me with any questions. Thank you for having consult of the [facility] group.
--- NOTE | 2018-07-02 07:57 | Internal Med Progress Note ---
<Chelsea Cuellar - Last Filed: 07/02/18 10:14> Hospitalist Progress Note - Encounter Date of Encounter: 07/02/18 - Exam Vitals: Temp Pulse Resp BP Pulse Ox 98.3 F 73 18 109/65 97 07/02/18 07:35 07/02/18 07:35 07/02/18 07:35 07/02/18 07:35 07/02/18 07:35 - Assessment and Plan (1) Rhabdomyolysis Current Visit: Yes Status: Acute (2) Hypertension Current Visit: Yes Status: Acute (3) Transaminitis Current Visit: Yes Status: Acute (4) Lactic acidosis Current Visit: Yes Status: Resolved - Time Spent with Patient Total time spent is greater than 50% in coordination of care (as documented) at patient's floor/unit and/or counseling patient: Internal Medicine: Result - Labs CBC & Chem 7: 07/02/18 08:23 07/02/18 03:16 Labs: Short CBC 07/02/18 Range/Units 08:23 WBC 10.6 (4.3-11.1) K/mcL Hgb 14.0 (12.9-16.9) g/dL Hct 42.0 (37.5-50.1) % Plt Count 267 (140-400) K/mcL BMP 07/02/18 03:16 Sodium 137 Potassium 4.4 Chloride 106 Carbon Dioxide 26 BUN 15 Creatinine 0.59 L Glucose 154 H Calcium 9.0 Liver Function 07/02/18 07/02/18 Range/Units 03:16 08:23 Total Bilirubin 0.3 (0.3-1.0) mg/dL Direct Bilirubin 0.0 (0.0-0.2) mg/dL AST 680 H (13-39) Units/L ALT 330 H (7-52) Units/L Alkaline Phosphatase 68 (34-104) Units/L Albumin 3.4 L 3.6 (3.5-5.7) g/dL - ABG Interpretation ABG results: PT/INR, D-dimer PT 11.4 Seconds (9.4-12.1) 06/30/18 14:48 Consult Discharge Plan - Plan Referrals: NONE,PCP [Primary Care Provider] - - Attending Attestation I examined this patient and my medical decision-making was reviewed with the Resident Physician Dr Woodall. I agree with the documented findings, disposition and treatment plan as described except to the extent set forth below. Mr Fabian is admitted for rhabdo of unknown etiology and elevated liver enzymes of unknown etiology awake, pleasant, arms and legs muscle sore, back soreness improved, no abd pain, n/v, itching. gen- alert, awake,appears stated age eyes- pupils equal round, no scleral icterus cv- reg rate and rhythm, normal s1,s2, no murmurs appreciated lungs- ctabl,normal resp effort on room air abd- soft, non tender, non distended, + bs, no HSM appreciated neuro- AAOx3 Rhabdomyolysis, unknonw etiology Creat remains normal -increase ivfs, trend CK, monitor UOP/creat Elevated Transaminases -GI consulted and appreciate input ETOH use hx- cont CIWA, not in etoh withdrawal further diagnoses and plan as noted by resident <Kendall Woodall - Last Filed: 07/02/18 11:17> Hospitalist Progress Note - Encounter Date of Encounter: 07/02/18 Time of Encounter: 09:03 - Subjective Interval History: Pt seen at bedside. He has no acute complaints or concerns. Still c/o pain all over but improving. Very sleepy. - Exam Vitals: Temp Pulse Resp BP Pulse Ox 98.3 F 73 18 109/65 97 07/02/18 07:35 07/02/18 07:35 07/02/18 07:35 07/02/18 07:35 07/02/18 07:35 Exam: General - NAD, AOx3, pleasant, discheveled man HEENT - NCAT, MMM, sclera anicteric Cardio - tacycardia, s1s2, cta, no murmur Lungs - CTAB with mild expiratory wheeze Abd - TTP in RUQ without rebound or guarding, no peritoneal signs Extremities - moves all extremities equally and without difficulty LE/feet cool to the touch Neuro - no FND, sensation intact, CN2-12 grossly intact Psych - normal affect, normal mood Skin - warm, dry, intact - Assessment and Plan (1) Rhabdomyolysis Current Visit: Yes Status: Acute Assessment and Plan: Pt with hx of rhabdomyolysis in the past resulting in ARF and requiring HD x 3 sessions - began having increasing red urine on with muscle cramps - pt denies strainful activities, running, long bike rides; has had increasing amount of "house work" CK >20,000 x 2 days Creatinine 0.50 on admission --> 0.59 today UA with large blood and no RBC TSH WNL UDS negative (other than THC) Kidney fxn still intact, no acute electrolyte abnormalities at this time Plan: - repeat creatinine kinase with AM labs - increase NS to 250cc/hr from 200 cc/hr - CBC/BMP with AM labs - urine myoglobin pending - nephrology signed off 07/01 - aldolase pending, inflammatory markers pending - FEN: regular diet - dispo: GI consulted awaiting recommendations, pt will need inpatient management at this time with IVF and monitoring of kidney fxn (2) Transaminitis Current Visit: Yes Status: Acute Assessment and Plan: Pt with hx of severe alcoholism with mild tenderness to palpation of the abdomen AST 754, ALT 282 on admission AST 680, ALT 330 today GGT 11 Hepatitis panel negative Abdominal US negative for acute abnormality Plan: - GI consult (3) History of alcohol abuse Current Visit: Yes Status: Acute Assessment and Plan: 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 Consult SW. [facility] protocol. (4) Tobacco abuse Current Visit: Yes Status: Acute Assessment and Plan: Smokes 1/2 PPD. Counseled. (5) Hypertension Current Visit: Yes Status: Acute Assessment and Plan: Start on norvasc daily. Pt has untreated HTN. IVP lopressor q6hr if SBP>160 (6) DVT prophylaxis Current Visit: Yes Status: Acute Assessment and Plan: sq heparin (7) Leukocytosis Current Visit: Yes Status: Resolved Assessment and Plan: WBC 13.2---> to 12.2 --> 10, likely secondary to stress demargination. XR chest negative. Resolved. (8) Lactic acidosis Current Visit: Yes Status: Resolved Assessment and Plan: Lactic acid 3.2, repeat 1.7. Likely increased secondary to severe dehydration and rhabdomyolysis. Continue IVF hydration. Resolved. DVT Prophylaxis: sq heparin - Time Spent with Patient Total time spent is greater than 50% in coordination of care (as documented) at patient's floor/unit and/or counseling patient: less than 15 minutes Plan of Care Discussed with: patient Internal Medicine: Result - Labs CBC & Chem 7: 07/02/18 08:23 07/02/18 03:16 Labs: BMP 04/30/19 05/01/19 00:31 03:16 Sodium 136 137 Potassium 3.7 4.4 Chloride 106 106 Carbon Dioxide 27 26 BUN 10 15 Creatinine 0.52 L 0.59 L Glucose 112 H 154 H Calcium 8.1 L 9.0 Liver Function 07/02/18 Range/Units 03:16 Albumin 3.4 L (3.5-5.7) g/dL - ABG Interpretation ABG results: PT/INR, D-dimer PT 11.4 Seconds (9.4-12.1) 06/30/18 14:48 - Impressions Impressions Abdomen Ultrasound 07/01/18 08:00 IMPRESSION: Negative abdominal ultrasound. D/ / Miguelito Gomez MD / Miguelito Gomez MD Interpreting Provider: Miguelito Gomez MD <Chelsea Cuellar M - Last Filed: 07/02/18 10:14> (1) Rhabdomyolysis Qualifiers: Rhabdomyolysis type: non-traumatic Qualified Code(s): M62.82 - Rhabdomyolysis (2) Hypertension Qualifiers: Hypertension type: essential hypertension Qualified Code(s): I10 - Essential (primary) hypertension <Kendall Woodall S - Last Filed: 07/02/18 11:17> (1) Rhabdomyolysis Qualifiers: Rhabdomyolysis type: non-traumatic Qualified Code(s): M62.82 - Rhabdomyolysis (5) Hypertension Qualifiers: Hypertension type: essential hypertension Qualified Code(s): I10 - Essential (primary) hypertension (7) Leukocytosis Qualifiers: Leukocytosis type: unspecified Qualified Code(s): D72.829 - Elevated white bl ood cell count, unspecified
[2018-07-02 08:34] LABS: Mean Corpuscular HGB Conc 33.3 g/dL (31.6-35.5); Mean Corpuscular Hemoglobin 29.5 pg (28.0-33.3); Mean Corpuscular Volume 88.6 fL (83.0-100.0); Mean Platelet Volume 8.9 fL (9.4-12.4); Platelet Count 267 K/mcL (140-400); Red Blood Count 4.74 M/mcL (4.19-5.50); Red Cell Distribution Width 13.7 % (11.5-14.5)
[2018-07-02 08:54] LABS: Albumin 3.6 g/dL (3.5-5.7); Albumin/Globulin Ratio 1.3 (1.1-2.2); Bilirubin,Indirect 0.3 mg/dL (0.0-1.2); Bilirubin,Total 0.3 mg/dL (0.3-1.0); Globulin 2.7 g/dL (2.4-3.5); Total Protein 6.3 g/dL (6.4-8.9)
[2018-07-02] MEDS ORDERED: *HR* Metoprolol 5 MG/5 ML VIAL IVP PRN (09:05)
[2018-07-02] MEDS: amLODIPine 5 MG TABLET PO SCH (09:15)
--- NOTE | 2018-07-02 10:20 | Gastroenterology Consult Note ---
<Negin Talbertn Kathya - Last Filed: 07/02/18 10:17> Date of Encounter: 07/02/18 Time of Encounter: 09:30 - Time Spent With Patient Total time spent is greater than 50% in coordination of care (as documented) at patient's floor/unit and/or counseling patient: GI History of Present Illness - Data of Consult Patient: new to practice Consult date: 07/02/18 Requesting Physician: Chelsea Cuellar - Consult Narrative Reason for consult: elevated LFTs History of present illness: Mr. Fabian is a 52 year old male with PMH of untreated HTN, alcoholism and hx of rhabdomyolysis requiring HD x 3 sessions. He states that he has had rhabdomyolysis in the past and required HD due to kidney failure from it. He began noticing his urine turning red and that he had horrible muscle cramps. He states that over the last few days the cramps subsided and that his urine got less red but that he has been drinking " a lot of fluids to self treat" his rhabdo since he "knew" that he had it. He states that he hasn't done anything particularly straining, like running long distances or biking long distances. He also states that he hasn't had any recent falls or been sedentary for a long period of time. He has been having increasing amounts of house work since inheriting his parent's home. He reports drinking a half gallon of whiskey a day in the past but for the past year has been drinking a half gallon per month. labs show a CK of greater than 20,000, AST 707 ALT 282, early Yuri 0.4, alkaline phosphatase 68. Liver ultrasound was normal. He does admit to some abdominal pain and nausea but states is improved. He denies any diarrhea or constipation rectal bleeding or melena. DX: Transamanitis Rhabdomyolysis Alcoholism Plan: Transamanitis is likely due to shock liver from the rhabdomyolysis. Suzi nue IV hydration and supportive treatment. Would recommend treatment for alcoholism. Past Med Surg Social Fam HX - Past Medical History Medical history: hypertension, myocardial infarction, renal disease Psychiatric history: no psych history - Social History Smoking Status: Current every day smoker Alcohol use: occasionally Drug use: none - Family History Mother History Unknown: Yes Father History Unknown: Yes Review of Systems: GI: as per ROSA GENERAL: denies fever, has some chills EYES: denies yellow discoloration ENT: denies pain with swallowing or difficulty swallowing CARDIO: denies chest pain, palpitations RESP: Shortness of breath with exertion : see hpi NEURO: weakness HEME: Denies any bruising MS: see hpi DERM: denies rash or itching PSYCH: history of anxiety and depression - Constitutional Vitals: Temp Pulse Resp BP Pulse Ox 98.3 F 73 18 109/65 97 07/02/18 07:35 07/02/18 07:35 07/02/18 07:35 07/02/18 07:35 07/02/18 07:35 Exam: CONSTITUTIONAL:alert, no acute distress.HEAD:normocephalic.EYES:no jaundice.NECK:no obvious swelling.HEART:regular rate and rhythm, no murmurs.LUNGS:bilateral good air entry.ABDOMEN:non distended, soft, non tender, no masses palpable, no organomegaly.RECTAL EXAM:Deferred.EXTREMITIES:very thin build, no clubbing, cyanosis or edema.SKIN:no stigmata of chronic liver disease.NEUROLOGIC:no obvious focal defect. Results - Labs CBC & Chem 7: 07/02/18 08:23 07/02/18 03:16 Labs: Last Result 07/02/18 03:16 Calcium 9.0 Iron 44 L % Saturation 15 L Transferrin 212 Entire Visit 07/02/18 07/02/18 08:23 08:23 Hgb 14.0 Hct 42.0 Total Bilirubin 0.3 AST 680 H ALT 330 H - ABG ABG results: PT/INR, D-dimer PT 11.4 Seconds (9.4-12.1) 06/30/18 14:48 Consult Discharge Plan - Plan Referrals: NONE,PCP [Primary Care Provider] - <Maykel Gonzalez - Last Filed: 07/02/18 14:52> Date of Encounter: 07/02/18 Time of Encounter: 13:00 - Time Spent With Patient Total time spent is greater than 50% in coordination of care (as documented) at patient's floor/unit and/or counseling patient: GI History of Present Illness - Data of Consult Requesting Physician: Chelsea Cuellar - Consult Narrative History of present illness: Mr. Fabian is a 52 year old male - Constitutional Vitals: Temp Pulse Resp BP Pulse Ox 97.8 F 93 18 133/79 96 07/02/18 11:32 07/02/18 11:32 07/02/18 11:32 07/02/18 11:32 07/02/18 11:32 Results - Labs CBC & Chem 7: 07/02/18 08:23 07/02/18 03:16 Labs: Last Result 07/02/18 03:16 Calcium 9.0 Iron 44 L % Saturation 15 L Transferrin 212 Entire Visit 07/02/18 07/02/18 08:23 08:23 Hgb 14.0 Hct 42.0 Total Bilirubin 0.3 AST 680 H ALT 330 H - ABG ABG results: PT/INR, D-dimer PT 11.4 Seconds (9.4-12.1) 06/30/18 14:48 - Attending Attestation I have personally performed a face to face evaluation on this patient. I have reviewed and agree with the care plan. History and Exam by me shows: Patient seen denies any active issues. On examination alert and awake not in distress abdomen is benign. A: Patient with rhabdomyolysis with elevated LFTs. Elevated liver numbers could be due to muscle injury. Ultrasound of the gallbladder/liver is unremarkable and patient platelets are normal. Doubt that he has any underlying liver disease. Recommendation: Management of her abdomen as per primary team. Pt strongly encourage against any drinking
[2018-07-02 13:53] LABS: Bilirubin,Urine Negative (Negative); Blood,Urine Large (Negative); Clarity,Urine Clear (Clear); Color,Urine Yellow (Yellow); Glucose,Urine (UA) Normal (Normal); Ketones,Urine Negative (Negative); Leukocyte Esterase,Urine Negative (Negative); Nitrite,Urine Negative (Negative); PH,Urine 6.5 pH Units (5.0-8.0); Protein,Urine 30 mg/dL (Neg-Trace); Specific Gravity,Urine 1.012 (1.010-1.025); Urobilinogen,Urine Normal (Normal)
[2018-07-02 13:58] LABS: Bacteria,Urine None Seen per hpf (None-Few); Hyaline Casts,Urine None Seen per lpf (None-Few); RBC,Urine 0-3 per hpf (0-3); Squamous Epithelial Cell,Urine Few per lpf (None-Few); WBC,Urine 0-3 per hpf (0-3)
--- NOTE | 2018-07-02 15:53 | Electrocardiograph Report ---
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
[2018-07-03] MEDS: 0.9 % Sodium Chloride 1,000 ML IVC SCH ×6 (03:06→22:11)
[2018-07-03 05:32] LABS: Alanine Aminotransferase 335 Units/L (7-52); Albumin 3.4 g/dL (3.5-5.7); Albumin/Globulin Ratio 1.3 (1.1-2.2); Alkaline Phosphatase 59 Units/L (34-104); Aspartate Amino Transferase 564 Units/L (13-39); BUN/Creatinine Ratio 35 (6-26); Bilirubin,Total 0.3 mg/dL (0.3-1.0); Blood Urea Nitrogen 17 mg/dL (6-20); Calcium 9.1 mg/dL (8.6-10.3); Carbon Dioxide 26 mEq/L (23-29); Chloride 104 mEq/L (98-107); Globulin 2.6 g/dL (2.4-3.5); Glucose 95 mg/dL (70-105); Osmolality,Calculated 285 (280-300); Potassium 4.2 mEq/L (3.5-5.1); Sodium 137 mEq/L (136-145); eGFR For Non-African Americans > 60 (> 60)
[2018-07-03 05:33] LABS: Creatine Kinase > 20000 Units/L (30-223)
[2018-07-03] MEDS: *HR* Heparin 5,000 UNIT/ML VIAL SQ SCH ×2 (06:50→16:01)
--- NOTE | 2018-07-03 07:15 | Internal Med Progress Note ---
<Chelsea Cuellar - Last Filed: 07/03/18 10:09> Hospitalist Progress Note - Encounter Date of Encounter: 07/03/18 - Exam Vitals: Temp Pulse Resp BP Pulse Ox 99.3 F 92 16 132/94 97 07/03/18 08:07 07/03/18 08:07 07/03/18 08:07 07/03/18 08:07 07/03/18 08:07 - Assessment and Plan (1) Rhabdomyolysis Current Visit: Yes Status: Acute (2) Hypertension Current Visit: Yes Status: Acute (3) Transaminitis Current Visit: Yes Status: Acute (4) Lactic acidosis Current Visit: Yes Status: Resolved - Time Spent with Patient Total time spent is greater than 50% in coordination of care (as documented) at patient's floor/unit and/or counseling patient: Internal Medicine: Result - Labs CBC & Chem 7: 07/02/18 08:23 07/03/18 04:16 Labs: BMP 07/03/18 04:16 Sodium 137 Potassium 4.2 Chloride 104 Carbon Dioxide 26 BUN 17 Creatinine 0.48 L Glucose 95 Calcium 9.1 Liver Function 07/03/18 Range/Units 04:16 Total Bilirubin 0.3 (0.3-1.0) mg/dL AST 564 H (13-39) Units/L ALT 335 H (7-52) Units/L Alkaline Phosphatase 59 (34-104) Units/L Albumin 3.4 L (3.5-5.7) g/dL Urine 07/02/18 Range/Units 13:40 Urine Color Yellow (Yellow) Urine Clarity Clear (Clear) Urine pH 6.5 (5.0-8.0) pH Units Ur Specific [place] 1.012 (1.010-1.025) Urine Protein 30 H (Neg-Trace) mg/dL Urine Glucose (UA) Normal (Normal) mg/dL - ABG Interpretation ABG results: PT/INR, D-dimer PT 11.4 Seconds (9.4-12.1) 06/30/18 14:48 Consult Discharge Plan - Plan Referrals: NONE,PCP [Primary Care Provider] - - Attending Attestation I examined this patient and my medical decision-making was reviewed with the Resident Physician Dr Woodall. I agree with the documented findings, disposition and treatment plan as described except to the extent set forth below. Mr Fabian is admitted for rhabdo of unknown etiology and elevated liver enzymes of unknown etiology awake, still with sore arm and leg muscles, denies weakness. denies family history of similar episodes, denies strenuous activity prior to admit. denies recent rashes , skin color changes gen- alert, awake,appears stated age eyes- no scleral icterus , no pedro orbital discoloration cv- reg rate and rhythm, normal s1,s2 lungs- ctabl,normal resp effort on room air abd- soft, non tender, non distended, + bs, no HSM appreciated neuro- AAOx3, on muscle testing proximal muscle strength is 5/5 as is distal muscle strength in the BL UE and BL LE Rhabdomyolysis, unknown etiology Differential includes a myopathy Creat remains normal, serum myoglobin elevated - ivfs, CK remains >20K, consult Rheumatology Elevated Transaminases, improving -GI consulted and appreciate input ETOH use hx- cont CIWA, not in etoh withdrawal further diagnoses and plan as noted by resident <Kendall Woodall - Last Filed: 07/03/18 10:57> Hospitalist Progress Note - Encounter Date of Encounter: 07/03/18 Time of Encounter: 08:18 - Subjective Interval History: Pt seen at bedside. No acute complaint or concern. He is very sleep. - Exam Vitals: Temp Pulse Resp BP Pulse Ox 98.1 F 75 18 115/70 97 07/03/18 04:01 07/03/18 04:01 07/03/18 04:01 07/03/18 04:01 07/03/18 04:01 Exam: General - NAD, AOx3, pleasant, discheveled man HEENT - NCAT, MMM, sclera anicteric Cardio - tacycardia, s1s2, cta, no murmur Lungs - CTAB with mild expiratory wheeze Abd - TTP in RUQ without rebound or guarding, no peritoneal signs Extremities - moves all extremities equally and without difficulty LE/feet cool to the touch Neuro - no FND, sensation intact, CN2-12 grossly intact Psych - normal affect, normal mood Skin - warm, dry, intact - Assessment and Plan (1) Rhabdomyolysis Current Visit: Yes Status: Acute Assessment and Plan: Pt with hx of rhabdomyolysis in the past resulting in ARF and requiring HD x 3 sessions - began having increasing red urine on with muscle cramps - pt denies strainful activities, running, long bike rides; has had increasing amount of "house work" CK >20,000 x 4 days Creatinine 0.50 on admission --> 0.59 --> 0.48 UA with large blood and no RBC TSH WNL UDS negative (other than THC) CRP 73 Kidney fxn still intact, no acute electrolyte abnormalities at this time Plan: - repeat creatinine kinase with AM labs - 0.9%NS to 250cc/hr - CBC/BMP with AM labs - urine myoglobin pending - nephrology signed off 07/01 - aldolase pending,ESR pending - LDH level pending - HIV antibody pending - consult to rheumatology - FEN: regular diet - dispo: pt will need inpatient management at this time with IVF and monitoring of kidney fxn until CK levels around 5000 (2) Transaminitis Current Visit: Yes Status: Acute Assessment and Plan: Pt with hx of severe alcoholism with mild tenderness to palpation of the abdomen AST 754, ALT 282 on admission AST 564, ALT 335 today 5/2 GGT 11 Hepatitis panel negative Abdominal US negative for acute abnormality Plan: - GI consult said likely secondary to shock liver from severe rhabdo recommended against EtOH drinking (3) History of alcohol abuse Current Visit: Yes Status: Acute Assessment and Plan: 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 Consult [facility]. [facility] protocol. (4) Tobacco abuse Current Visit: Yes Status: Acute Assessment and Plan: Smokes 1/2 PPD. Counseled. (5) Hypertension Current Visit: Yes Status: Acute Assessment and Plan: Start on norvasc daily. Pt has untreated HTN. IVP lopressor q6hr if SBP>160 (6) DVT prophylaxis Current Visit: Yes Status: Acute Assessment and Plan: sq heparin (7) Leukocytosis Current Visit: Yes Status: Resolved Assessment and Plan: WBC 13.2---> to 12.2 --> 10, likely secondary to stress demargination. XR chest negative. Resolved. (8) Lactic acidosis Current Visit: Yes Status: Resolved Assessment and Plan: Lactic acid 3.2, repeat 1.7. Likely increased secondary to severe dehydration and rhabdomyolysis. Continue IVF hydration. Resolved. DVT Prophylaxis: sq heparin - Time Spent with Patient Total time spent is greater than 50% in coordination of care (as documented) at patient's floor/unit and/or counseling patient: less than 15 minutes Plan of Care Discussed with: nurse Internal Medicine: Result - Labs CBC & Chem 7: 07/02/18 08:23 07/03/18 04:16 Labs: Short CBC 07/02/18 Range/Units 08:23 WBC 10.6 (4.3-11.1) K/mcL Hgb 14.0 (12.9-16.9) g/dL Hct 42.0 (37.5-50.1) % Plt Count 267 (140-400) K/mcL BMP 07/03/18 04:16 Sodium 137 Potassium 4.2 Chloride 104 Carbon Dioxide 26 BUN 17 Creatinine 0.48 L Glucose 95 Calcium 9.1 Liver Function 07/02/18 07/03/18 Range/Units 08:23 04:16 Total Bilirubin 0.3 0.3 (0.3-1.0) mg/dL Direct Bilirubin 0.0 (0.0-0.2) mg/dL AST 680 H 564 H (13-39) Units/L ALT 330 H 335 H (7-52) Units/L Alkaline Phosphatase 68 59 (34-104) Units/L Albumin 3.6 3.4 L (3.5-5.7) g/dL Urine 07/02/18 Range/Units 13:40 Urine Color Yellow (Yellow) Urine Clarity Clear (Clear) Urine pH 6.5 (5.0-8.0) pH Units Ur Specific [place] 1.012 (1.010-1.025) Urine Protein 30 H (Neg-Trace) mg/dL Urine Glucose (UA) Normal (Normal) mg/dL - ABG Interpretation ABG results: PT/INR, D-dimer PT 11.4 Seconds (9.4-12.1) 06/30/18 14:48 <Chelsea Cuellar M - Last Filed: 07/03/18 10:09> (1) Rhabdomyolysis Qualifiers: Rhabdomyolysis type: non-traumatic Qualified Code(s): M62.82 - Rhabdomyolysis (2) Hypertension Qualifiers: Hypertension type: essential hypertension Qualified Code(s): I10 - Essential (primary) hypertension <Kendall Woodall S - Last Filed: 07/03/18 10:57> (1) Rhabdomyolysis Qualifiers: Rhabdomyolysis type: non-traumatic Qualified Code(s): M62.82 - Rhabdomyolysis (5) Hypertension Qualifiers: Hypertension type: essential hypertension Qualified Code(s): I10 - Essential (primary) hypertension (7) Leukocytosis Qualifiers: Leukocytosis type: unspecified Qualified Code(s): D72.829 - Elevated white blood cell count, unspecified
[2018-07-03] MEDS: amLODIPine 5 MG TABLET PO SCH (08:54)
[2018-07-03] MEDS: *HR* OxyCODONE Oral Soln 5 MG/5 ML UD.LIQ PO PRN (22:12)
[2018-07-04] MEDS: 0.9 % Sodium Chloride 1,000 ML IVC SCH ×4 (04:04→22:11)
[2018-07-04 04:05] LABS: Alanine Aminotransferase 280 Units/L (7-52); Albumin 3.3 g/dL (3.5-5.7); Albumin/Globulin Ratio 1.3 (1.1-2.2); Alkaline Phosphatase 56 Units/L (34-104); Aspartate Amino Transferase 319 Units/L (13-39); BUN/Creatinine Ratio 39 (6-26); Bilirubin,Total 0.3 mg/dL (0.3-1.0); Blood Urea Nitrogen 21 mg/dL (6-20); Calcium 8.7 mg/dL (8.6-10.3); Carbon Dioxide 27 mEq/L (23-29); Chloride 107 mEq/L (98-107); Creatine Kinase 16224 Units/L (30-223); Globulin 2.6 g/dL (2.4-3.5); Glucose 143 mg/dL (70-105); Osmolality,Calculated 293 (280-300); Potassium 3.8 mEq/L (3.5-5.1); Sodium 139 mEq/L (136-145); Total Protein 5.9 g/dL (6.4-8.9); eGFR For Non-African Americans > 60 (> 60)
[2018-07-04] MEDS: *HR* Heparin 5,000 UNIT/ML VIAL SQ SCH ×2 (06:19→18:02)
[2018-07-04] MEDS: amLODIPine 5 MG TABLET PO SCH (07:45)
--- NOTE | 2018-07-04 07:55 | Internal Med Progress Note ---
<Chelsea Cuellar - Last Filed: 07/04/18 10:05> Hospitalist Progress Note - Encounter Date of Encounter: 07/04/18 - Exam Vitals: Temp Pulse Resp BP Pulse Ox 97.8 F 71 16 126/76 97 07/04/18 06:46 07/04/18 06:46 07/04/18 06:46 07/04/18 06:46 07/04/18 06:46 - Assessment and Plan (1) Rhabdomyolysis Current Visit: Yes Status: Acute (2) Hypertension Current Visit: Yes Status: Acute (3) Transaminitis Current Visit: Yes Status: Acute (4) Lactic acidosis Current Visit: Yes Status: Resolved - Time Spent with Patient Total time spent is greater than 50% in coordination of care (as documented) at patient's floor/unit and/or counseling patient: Internal Medicine: Result - Labs CBC & Chem 7: 07/02/18 08:23 07/04/18 01:34 Labs: BMP 07/04/18 01:34 Sodium 139 Potassium 3.8 Chloride 107 Carbon Dioxide 27 BUN 21 H Creatinine 0.54 L Glucose 143 H Calcium 8.7 Liver Function 07/04/18 Range/Units 01:34 Total Bilirubin 0.3 (0.3-1.0) mg/dL AST 319 H (13-39) Units/L ALT 280 H (7-52) Units/L Alkaline Phosphatase 56 (34-104) Units/L Albumin 3.3 L (3.5-5.7) g/dL - ABG Interpretation ABG results: PT/INR, D-dimer PT 11.4 Seconds (9.4-12.1) 06/30/18 14:48 Consult Discharge Plan - Plan Referrals: NONE,PCP [Primary Care Provider] - - Attending Attestation I examined this patient and my medical decision-making was reviewed with the Resident Physician Dr Woodall. I agree with the documented findings, disposition and treatment plan as described except to the extent set forth below. Mr Fabian is admitted for rhabdo of unknown etiology and elevated liver enzymes of unknown etiology awake,arm and leg pain improving, no complaints. would like set up with pcp here as he doesn't have one. gen- alert, awake,appears stated age cv- reg rate and rhythm, normal s1,s2 lungs- ctabl,normal resp effort on room air neuro- AAOx3 Rhabdomyolysis, unknown etiology Differential includes a myopathy Creat remains normal, serum myoglobin elevated - ivfs, CK finally decreased and is 16K, attempted to consult Rheumatology but no one available this week, depending when he dc's we may have to refer him outpt for follow up and further outpt work up for myopathy Elevated Transaminases, improving -GI consulted and appreciate input, related to rhabdo and no intervention required ETOH use hx- cont CIWA, not in etoh withdrawal further diagnoses and plan as noted by resident <Kendall Woodall S - Last Filed: 07/04/18 11:26> Hospitalist Progress Note - Encounter Date of Encounter: 07/04/18 Time of Encounter: 09:28 - Subjective Interval History: Pt seen at bedside. He has no acute complaints or concerns. Denies chest pain, SOB, N/V/D. - Exam Vitals: Temp Pulse Resp BP Pulse Ox 97.8 F 71 16 126/76 97 07/04/18 06:46 07/04/18 06:46 07/04/18 06:46 07/04/18 06:46 07/04/18 06:46 Exam: General - NAD, AOx3, pleasant, discheveled man HEENT - NCAT, MMM, sclera anicteric Cardio - tacycardia, s1s2, cta, no murmur Lungs - CTAB with mild expiratory wheeze Abd - TTP in RUQ without rebound or guarding, no peritoneal signs Extremities - moves all extremities equally and without difficulty LE/feet cool to the touch Neuro - no FND, sensation intact, CN2-12 grossly intact Psych - normal affect, normal mood Skin - warm, dry, intact - Assessment and Plan (1) Rhabdomyolysis Current Visit: Yes Status: Acute Assessment and Plan: Pt with hx of rhabdomyolysis in the past resulting in ARF and requiring HD x 3 sessions - began having increasing red urine on with muscle cramps - pt denies strainful activities, running, long bike rides; has had increasing amount of "house work" CK >20,000 x 4 days, has decreased 72012 (07/04/18) Creatinine 0.50 on admission --> 0.59 --> 0.48 ---> 0.54 UA with large blood and no RBC TSH WNL UDS negative (other than THC) CRP 73, ESR 41, LDH 1083 Myoglobin 07138 Kidney fxn still intact, no acute electrolyte abnormalities at this time Plan: - repeat creatinine kinase with AM labs - 0.9%NS to 250cc/hr - BMP with AM labs - nephrology signed off 07/01 - aldolase pending - consult to rheumatology (dr montenegro out until saturday) - FEN: regular diet - dispo: pt will need inpatient management at this time with IVF and monitoring of kidney fxn until CK levels around 5000 sister's phone number: Simin Fabian [phone] (2) Transaminitis Current Visit: Yes Status: Acute Assessment and Plan: Pt with hx of severe alcoholism with mild tenderness to palpation of the abdomen AST 754, ALT 282 on admission AST 564, ALT 335 5/2 AST 319, ALT 280 5/3 GGT 11 Hepatitis panel negative Abdominal US negative for acute abnormality Plan: - GI consult said likely secondary to shock liver from severe rhabdo recommended against EtOH drinking (3) History of alcohol abuse Current Visit: Yes Status: Acute Assessment and Plan: 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 Consult [facility]. [facility] protocol. (4) Tobacco abuse Current Visit: Yes Status: Acute Assessment and Plan: Smokes 1/2 PPD. Counseled. (5) Hypertension Current Visit: Yes Status: Acute Assessment and Plan: Start on norvasc daily. Pt has untreated HTN. IVP lopressor q6hr if SBP>160 (6) DVT prophylaxis Current Visit: Yes Status: Acute Assessment and Plan: sq heparin (7) Leukocytosis Current Visit: Yes Status: Resolved Assessment and Plan: WBC 13.2---> to 12.2 --> 10, likely secondary to stress demargination. XR chest negative. Resolved. (8) Lactic acidosis Current Visit: Yes Status: Resolved Assessment and Plan: Lactic acid 3.2, repeat 1.7. Likely increased secondary to severe dehydration and rhabdomyolysis. Continue IVF hydration. Resolved. DVT Prophylaxis: sq heparin - Time Spent with Patient Total time spent is greater than 50% in coordination of care (as documented) at patient's floor/unit and/or counseling patient: less than 15 minutes Plan of Care Discussed with: patient Internal Medicine: Result - Labs CBC & Chem 7: 07/02/18 08:23 07/04/18 01:34 Labs: BMP 07/04/18 01:34 Sodium 139 Potassium 3.8 Chloride 107 Carbon Dioxide 27 BUN 21 H Creatinine 0.54 L Glucose 143 H Calcium 8.7 Liver Function 07/04/18 Range/Units 01:34 Total Bilirubin 0.3 (0.3-1.0) mg/dL AST 319 H (13-39) Units/L ALT 280 H (7-52) Units/L Alkaline Phosphatase 56 (34-104) Units/L Albumin 3.3 L (3.5-5.7) g/dL - ABG Interpretation ABG results: PT/INR, D-dimer PT 11.4 Seconds (9.4-12.1) 06/30/18 14:48 <Chelsea Cuellar M - Last Filed: 07/04/18 10:05> (1) Rhabdomyolysis Qualifiers: Rhabdomyolysis type: non-traumatic Qualified Code(s): M62.82 - Rhabdomyolysis (2) Hypertension Qualifiers: Hypertension type: essential hypertension Qualified Code(s): I10 - Essential (primary) hypertension <Kendall Woodall S - Last Filed: 07/04/18 11:26> (1) Rhabdomyolysis Qualifiers: Rhabdomyolysis type: non-traumatic Qualified Code(s): M62.82 - Rhabdomyolysis (5) Hypertension Qualifiers: Hypertension type: essential hypertension Qualified Code(s): I10 - Essential (primary) hypertension (7) Leukocytosis Qualifiers: Leukocytosis type: unspecified Qualified Code(s): D72.829 - Elevated white blood cell count, unspecified
[2018-07-04] MEDS: *HR* OxyCODONE Oral Soln 5 MG/5 ML UD.LIQ PO PRN (22:23)
[2018-07-05] MEDS: 0.9 % Sodium Chloride 1,000 ML IVC SCH ×5 (02:45→21:56)
[2018-07-05 03:18] LABS: BUN/Creatinine Ratio 41 (6-26); Blood Urea Nitrogen 25 mg/dL (6-20); Calcium 8.7 mg/dL (8.6-10.3); Carbon Dioxide 26 mEq/L (23-29); Chloride 107 mEq/L (98-107); Creatine Kinase 7079 Units/L (30-223); Glucose 116 mg/dL (70-105); Osmolality,Calculated 293 (280-300); Sodium 139 mEq/L (136-145); eGFR For Non-African Americans > 60 (> 60)
[2018-07-05] MEDS: *HR* Heparin 5,000 UNIT/ML VIAL SQ SCH ×2 (06:37→17:53)
[2018-07-05] MEDS: amLODIPine 5 MG TABLET PO SCH (08:19)
[2018-07-05] MEDS ORDERED: Ipratropium/Albuterol Neb 3 ML IH ONE (08:29)
--- NOTE | 2018-07-05 08:45 | Internal Med Progress Note ---
<Kendall Woodall S - Last Filed: 07/05/18 11:16> Hospitalist Progress Note - Encounter Date of Encounter: 07/05/18 Time of Encounter: 08:37 - Subjective Interval History: Pt is seen at bedside. Explained to him the results of his MRI from yesterday. He is feeling ok but he had a "rough night" and didn't sleep very much. No acute complaints or concerns at this time. - Exam Vitals: Temp Pulse Resp BP Pulse Ox 97.8 F 72 20 116/66 97 07/05/18 07:43 07/05/18 07:43 07/05/18 07:43 07/05/18 07:43 07/05/18 07:43 Exam: General - NAD, AOx3, pleasant, discheveled man HEENT - NCAT, MMM, sclera anicteric Cardio - tacycardia, s1s2, cta, no murmur Lungs - CTAB with mild expiratory wheeze Abd - TTP in RUQ without rebound or guarding, no peritoneal signs Extremities - moves all extremities equally and without difficulty LE/feet cool to the touch Neuro - no FND, sensation intact, CN2-12 grossly intact Psych - normal affect, normal mood Skin - warm, dry, intact - Assessment and Plan (1) Rhabdomyolysis Current Visit: Yes Status: Acute Assessment and Plan: Pt with hx of rhabdomyolysis in the past resulting in ARF and requiring HD x 3 sessions - began having increasing red urine on with muscle cramps - pt denies strainful activities, running, long bike rides; has had increasing amount of "house work" CK >20,000 x 4 days, has decreased 53446 (07/04/18) ---> 7079 (07/05/18) Creatinine 0.50 on admission --> 0.59 --> 0.48 ---> 0.54 UA with large blood and no RBC TSH WNL UDS negative (other than THC) CRP 73, ESR 41, LDH 1083 Myoglobin 14829 Aldolase 317.1 Kidney fxn still intact, no acute electrolyte abnormalities at this time MRI of LLE - Edema within multiple muscles of the lower leg, especially within the soleus muscle, but also seen within the anterior and lateral compartments and within the gastrocnemius muscles as well. This is a nonspecific finding, and can be seen seen in the setting of inflammatory polymyositis. 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, ?mm bx today with Dr Delgadillo at bedside for tissue diagnosis Plan: - repeat creatinine kinase with AM labs - 0.9%NS to 250cc/hr decreased to 150cc/hr - consult to acute care surgery for bedside muscle bx - BMP with AM labs - nephrology signed off 07/01 - consult to rheumatology (dr montenegro out until saturday) - rheumatologic serologies pending - FEN: regular diet - dispo: pt will need inpatient management at this time with IVF and monitoring of kidney fxn until CK levels around 5000, mm bx today sister's phone number: Simin Fabian [phone] (2) Transaminitis Current Visit: Yes Status: Acute Assessment and Plan: Pt with hx of severe alcoholism. Labs are improving. 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 Consult [facility] CARLOS. LINDA protocol. (4) Tobacco abuse Current Visit: Yes Status: Acute Assessment and Plan: Smokes 1/2 PPD. Counseled. (5) Hypertension Current Visit: Yes Status: Acute Assessment and Plan: Start on norvasc daily. Pt has untreated HTN. IVP lopressor q6hr if SBP>160 (6) DVT prophylaxis Current Visit: Yes Status: Acute Assessment and Plan: sq heparin (7) Leukocytosis Current Visit: Yes Status: Resolved Assessment and Plan: WBC 13.2---> to 12.2 --> 10, likely secondary to stress demargination. XR chest negative. Resolved. (8) Lactic acidosis Current Visit: Yes Status: Resolved Assessment and Plan: Lactic acid 3.2, repeat 1.7. Likely increased secondary to severe dehydration and rhabdomyolysis. Continue IVF hydration. Resolved. DVT Prophylaxis: sq heparin - Time Spent with Patient Total time spent is greater than 50% in coordination of care (as documented) at patient's floor/unit and/or counseling patient: 25 - 35 minutes Internal Medicine: Result - Labs CBC & Chem 7: 07/02/18 08:23 07/05/18 02:21 Labs: BMP 07/05/18 02:21 Sodium 139 Potassium 4.0 Chloride 107 Carbon Dioxide 26 BUN 25 H Creatinine 0.61 L Glucose 116 H Calcium 8.7 - ABG Interpretation ABG results: PT/INR, D-dimer PT 11.4 Seconds (9.4-12.1) 06/30/18 14:48 - Impressions Impressions Lower Extremity MRI 07/04/18 12:41 IMPRESSION: Edema within multiple muscles of the lower leg, especially within the soleus muscle, but also seen within the anterior and lateral compartments and within the gastrocnemius muscles as well. This is a nonspecific finding, and can be seen seen in the setting of inflammatory polymyositis. Possibility of denervation is considered as well, though the lesion would be proximal to the knee. D/ / Daniel Collins MD / Daniel Collins MD Interpreting Provider: Daniel Collins MD Consult Discharge Plan - Plan Referrals: NONE,PCP [Primary Care Provider] - <Chelsea Cuellar - Last Filed: 07/05/18 13:31> Hospitalist Progress Note - Encounter Date of Encounter: 07/05/18 - Exam Vitals: Temp Pulse Resp BP Pulse Ox 98 F 86 20 133/74 96 07/05/18 11:07 07/05/18 11:07 07/05/18 11:07 07/05/18 11:07 07/05/18 11:07 - Assessment and Plan (1) Rhabdomyolysis Current Visit: Yes Status: Acute (2) Hypertension Current Visit: Yes Status: Acute (3) Transaminitis Current Visit: Yes Status: Acute (4) Lactic acidosis Current Visit: Yes Status: Resolved - Time Spent with Patient Total time spent is greater than 50% in coordination of care (as documented) at patient's floor/unit and/or counseling patient: Internal Medicine: Result - Labs CBC & Chem 7: 07/02/18 08:23 07/05/18 02:21 Labs: BMP 07/05/18 02:21 Sodium 139 Potassium 4.0 Chloride 107 Carbon Dioxide 26 BUN 25 H Creatinine 0.61 L Glucose 116 H Calcium 8.7 - ABG Interpretation ABG results: PT/INR, D-dimer PT 11.4 Seconds (9.4-12.1) 06/30/18 14:48 - Impressions Impressions Lower Extremity MRI 07/04/18 12:41 IMPRESSION: Edema within multiple muscles of the lower leg, especially within the soleus muscle, but also seen within the anterior and lateral compartments and within the gastrocnemius muscles as well. This is a nonspecific finding, and can be seen seen in the setting of inflammatory polymyositis. Possibility of denervation is considered as well, though the lesion would be proximal to the knee. D/ / Daniel Collins MD / Daniel Collins MD Interpreting Provider: Daniel Collins MD - Attending Attestation I examined this patient and my medical decision-making was reviewed with the Resident Physician Dr Woodall. I agree with the documented findings, disposition and treatment plan as described except to the extent set forth below. Mr Fabian is admitted for rhabdo with suspected myopathy awake,muscle pain cont to improve and he is resting in bed comfortably urinating without difficulty. gen- alert, awake,appears stated age cv- reg rate and rhythm, normal s1,s2, no le edema lungs- ctabl,normal resp effort on room air skin- warm, dry, normal color neuro- AAOx3 Rhabdomyolysis, unknown etiology Differential includes a myopathy based on MRI result Creat remains normal, serum myoglobin elevated - ivfs can be decreased today to 150/hr and see if CK remains downtrending , now 7Ks -appreciate Dr Jaime input despite being out of town, labs sent and MRI with leg muscle edema -appreciate surgery team seeing pt and arranging for muscle biopsy Elevated Transaminases, improving -GI consulted and appreciate input, related to rhabdo and no intervention required ETOH use hx- cont CIWA, not in etoh withdrawal further diagnoses and plan as noted by resident <Kendall Woodall - Last Filed: 07/05/18 11:16> (1) Rhabdomyolysis Qualifiers: Rhabdomyolysis type: non-traumatic Qualified Code(s): M62.82 - Rhabdomyolysis (5) Hypertension Qualifiers: Hypertension type: essential hypertension Qualified Code(s): I10 - Essential (primary) hypertension (7) Leukocytosis Qualifiers: Leukocytosis type: unspecified Qualified Code(s): D72.829 - Elevated white blood cell count, unspecified <Chelsea Cuellar M - Last Filed: 07/05/18 13:31> (1) Rhabdomyolysis Qualifiers: Rhabdomyolysis type: non-traumatic Qualified Code(s): M62.82 - Rhabdomyolysis (2) Hypertension Qualifiers: Hypertension type: essential hypertension Qualified Code(s): I10 - Essential (primary) hypertension
[2018-07-05] MEDS ORDERED: Lidocaine -MPF 1% 2 ML VIAL ID PRN (14:13)
--- NOTE | 2018-07-05 14:48 | AcuteCare Surgery Consult Note ---
Date of Encounter: 07/05/18 Time of Encounter: 14:30 Assessment and Plan (1) Rhabdomyolysis Current Visit: Yes Status: Acute vs. polymyositis. Recommend muscle bx. Propose core needle LLE muscle bx at bedside under local. Indication and procedure explained to pt. He understands and is willing to proceed. Risks and benefits also explained. Possible com plications include but, are not limited to bleeding, infection or nondiagnostic bx. Consent obtained. Qualifiers: Rhabdomyolysis type: non-traumatic Qualified Code(s): M62.82 - Rhabdomyolysis History of Present Illness Reason for consult: other (chronic inflammation of left lower ext muscle) Requesting physician: Kendall Woodall History of present illness: This 52 y/o male is admitted to [facility] for possible recurrent left lower extremity rhabdomyolysis. MRI reveals other possibilty of polymyositis. Biopsy is requested for definitive dx. Pt complains of LLE pain and weakness. He also c/o chronic shoulder pain. He denies CP, SOB or abdominal pain. Denies fever. Past Med Surg Social Fam HX - Past Medical History Medical history: hypertension, myocardial infarction, renal disease Psychiatric history: no psych history - Social History Smoking Status: Current every day smoker Alcohol use: occasionally Drug use: none - Family History Mother History Unknown: Yes Father History Unknown: Yes Medications and Allergies No Known Home Drugs 06/30/18 [History] Allergy/AdvReac Type Severity Reaction Status Date / Time Penicillins Allergy Anaphylaxis Verified 06/30/18 22:16 Review of Systems All systems PM: The remainder of the systems were reviewed and are negative - Constitutional fatigue, weakness, no anorexia, no chills, no fever(s), no night sweats - EENT Nose, mouth and throat: no dry mouth, no dysphagia, no nasal congestion, no nasal discharge, no sinus pain, no sinus pressure, no sore throat - Respiratory no cough, no dyspnea, no wheezing - Gastrointestinal no abdominal pain, no bloating, no constipation, no diarrhea, no nausea, no vomiting - Genitourinary urinary frequency (due to IVF), no difficulty urinating, no dysuria - Musculoskeletal back pain, muscle cramps, muscle weakness, stiffness, no neck pain - Integumentary dry skin, no pruritus, no rash, no wounds, no jaundice - Neurological focal weakness, weakness, no dizziness - Psychiatric anxiety, depression - Endocrine fatigue - Hematologic/Lymphatic no easy bleeding, no easy bruising General Surgery Exam Initial Vital Signs Temp Pulse Resp BP Pulse Ox 97.0 F L 100 18 147/103 100 06/30/18 13:47 06/30/18 13:47 06/30/18 13:47 06/30/18 13:47 06/30/18 13:47 - General physical appearance well developed, no distress. negative: no pain - Eyes PERRL, normal ocular movement. negative: icteric - ENT no congestion, dry mucosa. negative: nasal discharge - Neck no masses, no lymphadectomy, no venous distension - Respiratory normal respiratory effort, clear to auscultation - Cardiovascular Cardiovascular exam: Present: RRR. Absent: murmurs - Abdomen Abdomen general surgery: Present: bowel sounds present, soft, non tender - Genitourinary Present: normal penis with no external lesions - Integumentary Integumentary general surgery: Present: warm and dry - Neurologic Present: CN 2-12 grossly intact, normal coordination, normal sensation - Musculoskeletal Present: normal posture, other (vague flaccidity and atrophy to muscle) Exam Initial Vital Signs Temp Pulse Resp BP Pulse Ox 97.0 F L 100 18 147/103 100 06/30/18 13:47 06/30/18 13:47 06/30/18 13:47 06/30/18 13:47 06/30/18 13:47 Results - Labs 07/02/18 08:23 07/05/18 02:21 Abnormal lab results WBC 12.2 K/mcL (4.3-11.1) H 07/01/18 00:31 MPV 8.9 fL (9.4-12.4) L 07/02/18 08:23 10.5 K/mcL (1.6-8.9) H 06/30/18 14:48 ESR 41 mm/hr (0-10) H 07/01/18 14:47 BUN 25 mg/dL (6-20) H 07/05/18 02:21 0.61 mg/dL (0.70-1.30) L 07/05/18 02:21 41 (6-26) H 07/05/18 02:21 Glucose 116 mg/dL (70-105) H 07/05/18 02:21 Lactic Acid 2.9 mmol/L (0.5-2.2) H 06/30/18 18:37 Calcium 8.1 mg/dL (8.6-10.3) L 07/01/18 00:31 Iron 44 mcg/dL (65-175) L 07/02/18 03:16 % Saturation 15 % (20-55) L 07/02/18 03:16 AST 319 Units/L (13-39) H 07/04/18 01:34 ALT 280 Units/L (7-52) H 07/04/18 01:34 1083 Units/L (140-271) H 07/03/18 11:14 7079 Units/L (30-223) H 07/05/18 02:21 36375 ng/mL (28-72) H 06/30/18 16:00 73 mg/L (Less than 10) H 07/01/18 14:47 5.9 g/dL (6.4-8.9) L 07/04/18 01:34 3.3 g/dL (3.5-5.7) L 07/04/18 01:34 2.3 g/dL (2.4-3.5) L 07/01/18 00:31 317.1 U/L (1.5-8.1) H 07/02/18 03:16 Ur Specific [place] 1.007 (1.010-1.025) L 06/30/18 15:37 30 mg/dL (Neg-Trace) H 07/02/18 13:40 Large (Negative) H 07/02/18 13:40 198 mg/L (0-1) H 07/01/18 06:07 Acetaminophen < 10 mcg/mL (10-20) L 06/30/18 14:48 U Marijuana (THC) Screen Positive ng/mL (Cutoff = 50) H 07/01/18 06:07 Diabetes panel 07/05/18 Range/Units 02:21 Sodium 139 (136-145) mEq/L Potassium 4.0 (3.5-5.1) mEq/L Chloride 107 (98-107) mEq/L Carbon Dioxide 26 (23-29) mEq/L BUN 25 H (6-20) mg/dL Creatinine 0.61 L (0.70-1.30) mg/dL Glucose 116 H (70-105) mg/dL Calcium 8.7 (8.6-10.3) mg/dL Calcium panel 07/05/18 Range/Units 02:21 Calcium 8.7 (8.6-10.3) mg/dL Pituitary panel 07/05/18 Range/Units 02:21 Sodium 139 (136-145) mEq/L Potassium 4.0 (3.5-5.1) mEq/L Chloride 107 (98-107) mEq/L Carbon Dioxide 26 (23-29) mEq/L BUN 25 H (6-20) mg/dL Creatinine 0.61 L (0.70-1.30) mg/dL Glucose 116 H (70-105) mg/dL Calcium 8.7 (8.6-10.3) mg/dL Adrenal panel 07/05/18 Range/Units 02:21 Sodium 139 (136-145) mEq/L Potassium 4.0 (3.5-5.1) mEq/L Chloride 107 (98-107) mEq/L Carbon Dioxide 26 (23-29) mEq/L BUN 25 H (6-20) mg/dL Creatinine 0.61 L (0.70-1.30) mg/dL Glucose 116 H (70-105) mg/dL Calcium 8.7 (8.6-10.3) mg/dL All other labs normal. - Imaging Additional studies: LLE MRI reveals left lower extremity muscle soreness. Consult Discharge Plan - Plan Referrals: NONE,PCP [Primary Care Provider] -
--- NOTE | 2018-07-05 14:53 | Acute Care Surg Procedure Note ---
Date of procedure: 07/05/18 Pre-op diagnosis: recurrent left lower extremity rhabdomyolysis vs. polymyositis Post-op diagnosis: same Procedure: LLE muscle bx Pre-operative diagnosis: rhabdomyolysis vs polymyositis LLE Post-operative diagnosis: same Procedure: LLE core needle bx of muscle Surgeon: Ana Laura Villanueva DO Anasthesia: local EBL: min Specimen: LLE muscle Complications: none Condition: Pt tolerated procedure well. Pt was discharged home in good cond ition. Narrative: This 52 y/o pt is placed in the right lateral recumbant position. The left calf is prepped and draped in the ususal sterile fashion. 1% Lidocaine is injected and the area is localized. A 5 mm incision is made. A core needle is inserted into the left gastrocnemius muscle and multiple cores are taken. Pressure is held. Steri strips are placed. A sterile dressing is placed. Specimen sent for pathology. Pt tolerated procedure well. Complications: none Anesthesia: local Surgeon: Ana Laura Bauman Estimated blood loss (cc): 10 Pathology: other (left lower extremity muscle) Condition: stable Disposition: floor
[2018-07-05] MEDS: *HR* OxyCODONE Oral Soln 5 MG/5 ML UD.LIQ PO PRN ×2 (15:24→21:38)
[2018-07-05] MEDS: predniSONE 20 MG TABLET PO SCH (17:53)
[2018-07-06] MEDS: 0.9 % Sodium Chloride 1,000 ML IVC SCH (03:33)
[2018-07-06 05:17] LABS: BUN/Creatinine Ratio 36 (6-26); Blood Urea Nitrogen 20 mg/dL (6-20); Calcium 9.1 mg/dL (8.6-10.3); Carbon Dioxide 25 mEq/L (23-29); Chloride 106 mEq/L (98-107); Glucose 138 mg/dL (70-105); Osmolality,Calculated 291 (280-300); Sodium 138 mEq/L (136-145); eGFR For Non-African Americans > 60 (> 60)
[2018-07-06 05:27] LABS: Creatine Kinase 3419 Units/L (30-223)
[2018-07-06] MEDS: *HR* Heparin 5,000 UNIT/ML VIAL SQ SCH (05:49)
[2018-07-06 07:43] LABS: ANA IgG by ELISA NONE DETECTED (None Detected)
--- NOTE | 2018-07-06 08:59 | Discharge Summary ---
<Kendall Woodall S - Last Filed: 07/06/18 10:51> - NOTES TO OUTPATIENT PROVIDER Notes to Outpatient Provider: F/U with residency clinic this week. F/U with Dr. Mancilla in the rheumatology clinic. Pt started on prednisone to empiraclly tx suspected inflammatory myopathy, however, due to concern for noncompliance will not start rx and will defer for outpatient to start due to risk outweighing the benefit of potentially being d/c with high dose steroids and sudden abrupt cessation due to pt hx of noncompliance. Muscle bx report pending, completed by Dr. Valderrama on 07/05/18. Pt has rheumatologic antigens pending. He will be d/c with amlodipine 10mg, which he started here in the hospital. Orders not resulted at time of discharge: Pending orders 07/04/18 13:00 MILAGROS IgG DOMI rflx IFA Routine XUAN-1 Antibody, IGG Routine SSA 52&60 (Anti-RO) Antibodies Routine 07/05/18 14:51 Surgical Pathology [PTH] Stat Date of Encounter: 07/06/18 Time of Encounter: 08:57 - Discharge Diagnosis (1) Rhabdomyolysis Priority: Primary Status: Acute Qualifiers: Rhabdomyolysis type: non-traumatic Qualified Code(s): M62.82 - Rhabdomyolysis (2) Transaminitis Priority: Secondary Status: Acute (3) History of alcohol abuse Priority: Secondary Status: Chronic (4) Tobacco abuse Priority: Secondary Status: Chronic (5) Hypertension Priority: Secondary Status: Chronic Qualifiers: Hypertension type: essential hypertension Qualified Code(s): I10 - Essential (primary) hypertension (6) DVT prophylaxis Priority: Secondary Status: Acute (7) Leukocytosis Priority: Secondary Status: Resolved Qualifiers: Leukocytosis type: unspecified Qualified Code(s): D72.829 - Elevated white blood cell count, unspecified (8) Lactic acidosis Priority: Secondary Status: Resolved Hospital course: Mr. Fabian is a 52 year old male with PMH of untreated HTN, alcoholism and hx of rhabdomyolysis requiring HD x 3 sessions. He was admitted on 06/30/18.. He states that he has had rhabdomyolysis in the past and required HD due to kidney failure from it. He states that on before coming to the hospital he began noticing his urine turning red and that he had horrible muscle cramps. He states that over the last few days the cramps subsided and that his urine got less red but that he has been drinking " a lot of fluids to self treat" his rhabdo since he "knew" that he had it. He states that he hasn't done anything particularly straining, like running long distances or biking long distances. He also states that he hasn't had any recent falls or been sedentary for a long period of time. He has been having increasing amounts of house work since inheriting his parent's home. In the ER he was found to have a CK of >20,000 with a creatinine of 0.5. He was given a bolus of fluids and was continued on IV normal saline. He had elevated AST/ALT as well, likely alchohol induced as the AST higher than ALT with some mild RUQ tenderness to palpation. He was also found to have cold LE and YOAV have been ordered. Patient to be admitted to the hospitalist service for further ev aluation and treatment. While in the hospital he persistently had an elevated CK >2000 x 4 days. It subsequently began to decrease to an acceptable level. On 07/05 it was 7079, this morning of discharge it was 3419. Due to recurrent, severe rhabdomyolysis hospitalist team decided to workup potential reasons for why he might have it. Hypothyrpod induced myopathy was ruled out. Pt not on a statin. ESR and CRP levels returned elevated, aldolase at 317. It was decided to talk to rheumatology who recommended rheumaologic workup. MILAGROS screen negative. Xuan-1 antibody and SSA antibodies are still pending. He had an MRI of the LLE, which showed Edema within multiple muscles of the lower leg, especially within the soleusmuscle, but also seen within the anterior and lateral compartments and within the gastrocnemius muscles as well. This is a nonspecific finding, and can be seen seen in the setting of inflammatory polymyositis. Possibility of denervation is considered as well, though the lesion would be proximal to the knee. On admission pt had extremely elevated LFT's. GI was consulted and said it was likely secondary to shock liver from severe rhabdomyolysis. Pt does have a hx of severe alcoholism. GI also recommended the pt quit drinking. AST 754, ALT 282 on admission AST 564, ALT 335 5/2 AST 319, ALT 280 5/3 GGT 11 Hepatitis panel negative Abdominal US negative for acute abnormality On 07/05 acute care surgery was consulted to perform a muscle biopsy. He had mm bx at bedside and samples were sent for pathologic evaluation. He is to follow up with Dr Mancilla as an outpatient and with residency clinic. He will be discharged on amlodipine, which was started in the hospital. The pt is medically stable for discharge at this point. He is encouraged to drink adequate amounts of fluid, avoid heavy lifing or strenuous exercise, and to avoid getting overheated. He is told to return to the ER if symptoms worsen or change. Pt started on prednisone to empiraclly tx suspected inflammatory myopathy, however, due to concern for noncompliance will not start rx and will defer for outpatient to start due to risk outweighing the benefit of potentially being d/c with high dose steroids and sudden abrupt cessation due to pt hx of noncompliance. Order for patient to have repeat creatine kinase in 3 days printed and given to patient. Discharge discussed with: patient, nurse Time spent discussing smoking cessation with patient: more than 10 minutes - Time Spent with Patient Total time spent providing and/or coordinating discharge services: Time spent: Greater than 30 minutes - Discharge Medications Prescriptions: New Ferrous Sulfate 325 mg PO DAILY@0800 30 Days #30 tablet amLODIPine [Norvasc] 10 mg PO DAILY 30 Days #60 tablet Home Medications: Ferrous Sulfate 325 mg PO DAILY@0800 30 Days #30 tablet 07/06/18 [Rx] amLODIPine [Norvasc] 10 mg PO DAILY 30 Days #60 tablet 07/06/18 [Rx] Allergies/Adverse Reactions: Allergy/AdvReac Type Severity Reaction Status Date / Time Penicillins Allergy Anaphylaxis Verified 06/30/18 22:16 Date of admission: 06/30/18 18:46 Primary care physician: PCP NONE Consults: 06/30/18 16:27 Consult to Livestock Dealer [CONS] Routine Reason for SW Consult: hx of alcoholism 06/30/18 17:00 Consult to Nephrology [CONS] Routine Consulting Provider: [facility]/DEEPAK/JESSICA/SANDER Reason for Consult: severe rhabdo Call Completed: No 07/01/18 10:17 Consult to Gastroenterology [CONS] Routine Consulting Provider: Gastroenterology [place] Reason for Consult: transaminitis Call Completed: No 07/03/18 10:53 Consult to Rheumatology [CONS] Routine Consulting Provider: Cory Mancilla Reason for Consult: rhabdo Call Completed: No 07/05/18 10:10 Consult to Surgery [CONS] Routine Consulting Provider: Acute Care Surgery Reason for Consult: mm biopsy Call Completed: Yes 07/05/18 15:31 Consult to Occupational Therapy [CONS] Routine Comment: Evaluate, develop and implement POC Reason for Consult: ptot eval Does patient have active BEDREST order?: No Is patient medically & hemodynamically stable?: Yes Patient assessed for mobility or mobilized this visit?: No Consult to Physical Therapy [CONS] Routine Comment: Evaluate, develop and implement POC Reason for Consult: ptot eval Does patient have active BEDREST order?: No Is patient medically & hemodynamically stable?: Yes Patient assessed for mobility or mobilized this visit?: No Discharging clinician: Kendall Woodall Anticipated date of discharge: 07/06/18 - Constitutional Vitals: Temp Pulse Resp BP Pulse Ox 97.9 F 78 20 121/71 96 07/06/18 08:01 07/06/18 08:01 07/06/18 08:01 07/06/18 08:01 07/06/18 08:01 Exam: General - NAD, AOx3, pleasant, discheveled man HEENT - NCAT, MMM, sclera anicteric Cardio - tacycardia, s1s2, cta, no murmur Lungs - CTAB with mild expiratory wheeze Abd - TTP in RUQ without rebound or guarding, no peritoneal signs Extremities - moves all extremities equally and without difficulty LE/feet cool to the touch Neuro - no FND, sensation intact, CN2-12 grossly intact Psych - normal affect, normal mood Skin - warm, dry, intact - Patient Status Disposition: Home, Self-Care Condition: Good Functional capacity at discharge: independent ambulation Overall status at discharge: patient is progressing back to baseline - Ambulatory Orders Ambulatory Orders: Creatine Kinase [CHEM] Time Frame: 3 Days, Facility: [facility], Location: Lab - Discharge Instructions Follow Up With: NONE,PCP [Primary Care Provider] - (residency clinic this week ) Cory Mancilla, [Partnered Physician] - (rheumatology follow up for muscle biopsy result and possible myositis treatment) - Diet and Activity Activity: increase activity as tolerated Diet: regular diet <Chelsea Cuellar - Last Filed: 07/06/18 11:15> Orders not resulted at time of discharge: Pending orders 07/04/18 13:00 MILAGROS IgG DOMI rflx IFA Routine XUAN-1 Antibody, IGG Routine SSA 52&60 (Anti-RO) Antibodies Routine 07/05/18 14:51 Surgical Pathology [PTH] Stat Date of Encounter: 07/06/18 - Discharge Diagnosis (1) Rhabdomyolysis Status: Acute Qualifiers: Rhabdomyolysis type: non-traumatic Qualified Code(s): M62.82 - Rhabdomyolysis (2) Hypertension Status: Chronic Qualifiers: Hypertension type: essential hypertension Qualified Code(s): I10 - Essential (primary) hypertension (3) Transaminitis Status: Acute (4) Lactic acidosis Status: Resolved Hospital course: Mr. Fabian is a 52 year old male - Time Spent with Patient Total time spent providing and/or coordinating discharge services: Time spent: Greater than 30 minutes (40 min) Date of admission: 06/30/18 18:46 Primary care physician: PCP NONE Consults: 06/30/18 16:27 Consult to Livestock Dealer [CONS] Routine Reason for SW Consult: hx of alcoholism 06/30/18 17:00 Consult to Nephrology [CONS] Routine Consulting Provider: Kidney Mil[facility]/DEEPAK/JESSICA/SANDER Reason for Consult: severe rhabdo Call Completed: No 07/01/18 10:17 Consult to Gastroenterology [CONS] Routine Consulting Provider: Gastroenterology [place] Reason for Consult: transaminitis Call Completed: No 07/03/18 10:53 Consult to Rheumatology [CONS] Routine Consulting Provider: Cory Mancilla Reason for Consult: rhabdo Call Completed: No 07/05/18 10:10 Consult to Surgery [CONS] Routine Consulting Provider: Acute Care Surgery Reason for Consult: mm biopsy Call Completed: Yes 07/05/18 15:31 Consult to Occupational Therapy [CONS] Routine Comment: Evaluate, develop and implement POC Reason for Consult: ptot eval Does patient have active BEDREST order?: No Is patient medically & hemodynamically stable?: Yes Patient assessed for mobility or mobilized this visit?: No Consult to Physical Therapy [CONS] Routine Comment: Evaluate, develop and implement POC Reason for Consult: ptot eval Does patient have active BEDREST order?: No Is patient medically & hemodynamically stable?: Yes Patient assessed for mobility or mobilized this visit?: No - Constitutional Vitals: Temp Pulse Resp BP Pulse Ox 97.9 F 78 20 121/71 96 07/06/18 08:01 07/06/18 08:01 07/06/18 08:01 07/06/18 08:01 07/06/18 08:01 - Attending Attestation I examined this patient and my medical decision-making was reviewed with the Resident Physician Dr Woodall. I agree with the documented findings, disposition and treatment plan as described except to the extent set forth below. Mr Fabian is admitted for rhabdo with suspected myopathy awake,feeling overall greatly improved. he is eagere for dc to home. urinating without difficulty. mild arm/leg soreness. can verbalize well his dc plan and encouraged to follow up and good oral intake of water--not beer-- on dc. RN at bedside. gen- alert, awake,appears stated age cv- reg rate and rhythm, normal s1,s2 lungs- ctabl,normal resp effort on room air msk- UE and LE rom intact skin- leg biopsy site with bandaid and dried blood, no erythema, edema or increased warmth neuro- AAOx3 Rhabdomyolysis, unknown etiology Differential includes a myopathy based on MRI result, possibly related to heavy etoh use Creat remains normal, serum myoglobin elevated this admit - CK now 3Ks -appreciate Dr Jaime input despite being out of town, -appreciate surgery team seeing pt and arranging for muscle biopsy -he will dc with outpt pcp follow up (residency clinic appt to be made by staff), outpt ck in 3 days, fu with Rheum for biopsy result and then to discuss steroid tx -will not dc on po steroids high dose in setting of unconfirmed diagnosis and non severe sxs as he is high risk not to follow up, to not take as rx and to abruptly stop; will defer to Rheum once muscle bx results Elevated Transaminases, improved -GI consulted and appreciate input, related to rhabdo and no intervention required ETOH use hx- cont CIWA, not in etoh withdrawal this admit, stop etoh use further diagnoses and plan as noted by resident time spent on dc 40 min
[2018-07-06] MEDS: predniSONE 20 MG TABLET PO SCH (10:03)
[2018-07-06] MEDS: amLODIPine 5 MG TABLET PO SCH (10:03)
[2018-07-06 12:03] VITALS: BP 138/80
[2018-07-07 08:46] LABS: SSA 52 (Anti-RO) Antibody 124 AU/mL (0-40); SSA 60 (Anti-RO) Antibody 1 AU/mL (0-40)
== END 2018-07-06 15:35 | disposition home or self-care (01) | DRG 317 ==
LOC: EMEROOARM 13:43 → 2ANU 13:43 → SUATTDRO 18:46
PROVIDERS: ADMIT Student in an Organized Health Care Education/Training Program; ATTEND Internal Medicine